=== PATIENT | male | born 1960 | race Caucasian/White ===

== ENCOUNTER 2018-05-29 09:09 | Outpatient (CLI) | payer BC, SELFPAY ==
[2018-05-29 11:34] LABS: Hemoglobin A1C 5.5 % (4.5-6.2)
[2018-05-29 11:43] LABS: Cholesterol 260 mg/dL (50-200); HDL Cholesterol 39 mg/dL (40-60); LDL CHOLESTEROL 203 mg/dL (<100); Triglyceride 104 mg/dL (30-150)
== END 2018-05-29 09:29 ==
PROVIDERS: PCP Emergency Medicine; Visit Provider Emergency Medicine
DX: E78.5 Hyperlipidemia, unspecified (principal); E11.9 Type 2 diabetes mellitus without complications
CPT/HCPCS: 36415; 80061; 83721; 83036

== ENCOUNTER 2018-07-21 08:02 | Outpatient (CLI) | payer BC, SELFPAY ==
[2018-07-21 11:38] LABS: Cholesterol 184 mg/dL (50-200); HDL Cholesterol 41 mg/dL (40-60); LDL CHOLESTEROL 129 mg/dL (<100); Triglyceride 66 mg/dL (30-150)
== END 2018-07-21 08:22 ==
PROVIDERS: PCP Emergency Medicine; Visit Provider Emergency Medicine
DX: E78.5 Hyperlipidemia, unspecified (principal)
CPT/HCPCS: 36415; 80061; 83721

== ENCOUNTER 2020-01-26 11:15 | Outpatient (REF) | payer OTHER, SELFPAY ==
[2020-01-26 13:12] LABS: Calculated LDL 147 mg/dL (<100); Cholesterol 220 mg/dL (<200); HDL Cholesterol 34 mg/dL (40-60); Triglyceride 196 mg/dL (<150)
[2020-01-26 13:13] LABS: Hemoglobin A1C 5.9 % (3.8-5.6)
[2020-01-27 09:19] LABS: PSA, Screening 0.9 ng/mL (0.0-4.5)
== END 2020-01-26 11:35 ==
LOC: LBN 11:15
PROVIDERS: PCP Emergency Medicine; Visit Provider Emergency Medicine
DX: I25.10 Atherosclerotic heart disease of native coronary artery without angina pectoris (principal); E66.9 Obesity, unspecified; Z12.5 Encounter for screening for malignant neoplasm of prostate
CPT/HCPCS: 80061; 84153; 83036

== ENCOUNTER 2020-09-19 03:18 | Outpatient (CLI) | payer OTHER, SELFPAY ==
[2020-09-20 13:31] LABS: COVID-19 RT-PCR UVMMC Result Positive (Negative)
== END 2020-09-19 03:19 | disposition home or self-care (01) ==
LOC: LBO 03:18
PROVIDERS: PCP Emergency Medicine; Visit Provider Emergency Medicine
DX: Z20.828 Contact with and (suspected) exposure to other viral communicable diseases (principal)
CPT/HCPCS: U0003

== ENCOUNTER 2021-03-20 12:59 | Outpatient (REF) | payer OTHER, SELFPAY ==
[2021-03-20 16:46] LABS: Anion Gap 9.2 mmol/L (3-11); BUN 24 mg/dL (7-18); CO2 28.8 mmol/L (21.0-32.0); CREATININE 1.2 mg/dL (0.70-1.30); Calcium 9.4 mg/dL (8.5-10.1); Calculated LDL 102 mg/dL (<100); Chloride 105 mmol/L (98-107); Cholesterol 167 mg/dL (<200); Glucose 202 mg/dL (74-106); HDL Cholesterol 35 mg/dL (40-60); Potassium 3.8 mmol/L (3.5-5.1); Sodium 143 mmol/L (136-145); Triglyceride 150 mg/dL (<150)
[2021-03-20 17:55] LABS: Hemoglobin A1C 6.8 % (<5.7)
== END 2021-03-20 13:00 | disposition home or self-care (01) ==
LOC: LBN 12:59
PROVIDERS: PCP Emergency Medicine; Visit Provider Emergency Medicine
DX: I10 Essential (primary) hypertension; I25.10 Atherosclerotic heart disease of native coronary artery without angina pectoris; E11.9 Type 2 diabetes mellitus without complications
CPT/HCPCS: 80048; 80061; 83036

== ENCOUNTER 2022-02-05 09:12 | Emergency (ER) | payer BC, SELFPAY ==
[2022-02-05] VITALS (23 sets, daily range): BP systolic 109–172; BP diastolic 62–97; PULSE 53–67; RESP 9–24; TEMP 37.4; O2SAT 90–97
--- NOTE | 2022-02-05 09:15 | DI.CT_ITS ---
Exam(s) CT RENAL COLIC WO EXAM: CT RENAL COLIC WO INDICATION: right flank pain. COMPARISON: CT RENAL COLIC WO CONTRAST from 04/05/2015 TECHNIQUE: CT examination was performed without contrast administration. FINDINGS: Images obtained through the lung bases are unremarkable. Visualized portions of the liver and splee n appear intact. Visualized portions of the pancreas are unremarkable. Gallbladder and bile ducts are CT normal. Abdominal aorta is of normal diameter. No significant abdominal wall hernia. No significant abdominal or pelvic adenopathy. Adrenals appear normal bilaterally. There are multiple renal masses identified bilaterally, these have appearance consistent with cysts.t here are multiple nonobstructing bilateral renal calculi. There is mild right hydronephrosis. There is 1-2 millimeter in diameter calcification seen in the urinary bladder on the right which may eithe r lie within the bladder lumen or in the distal portion of the intra mural segment of the distal righ t ureter. Urinary bladder is otherwise unremarkable in appearance. IMPRESSION: Multiple nonobstructing renal calculi are noted bilaterally. There is a probable right ureterovesical junction calculus measuring 1-2 millimeters in diameter, alt ernatively this could represent a recently passed stone in the urinary bladder. RADIATION DOSE DELIVERED: 1,201.79mGy.cm DLP 1,201.79mGy.cm Total DLP !Error CTDIvol DATA REPOSITORY: All CT scans at this facility are submitted to the National Radiology Data Registry (NRDR) Dose Index Registry (DIR) with the [employer] (A[employer]). RADIATION OPTIMIZATION: All CT scans at this facility use at least one of these dose optimization te chniques: automated exposure control; mA and/or kV adjustment per patient size (includes targeted exa ms where dose is matched to clinical indication); or iterative reconstruction.
--- NOTE | 2022-02-05 09:33 | W.ED.GENAD ---
Discharge Plan Disposition Patient Disposition: HOME Condition: Improving Discharge Details Clinical Impression: Kidney stone, Elevated hemoglobin Primary Care Provider: Abrahan Izquierdo ED Provider: Joshua Singh Home Meds and New Rx's Prescriptions: No Action rosuvastatin [Crestor] 10 mg tablet 20 mg PO DAILY Qty: 90 3RF sildenafil [Viagra] 100 mg tablet 100 mg PO DAILY Qty: 6 3RF aspirin 81 mg tablet,delayed release (DR/EC) 81 mg PO DAILY Qty: 90 3RF amlodipine 5 mg tablet 5 mg PO DAILY Qty: 90 3RF hydrochlorothiazide 25 mg tablet 25 mg PO DAILY Qty: 90 3RF metoprolol succinate 50 mg tablet extended release 24 hr 50 mg PO DAILY Qty: 90 3RF nitroglycerin 0.4 MG tablet, sublingual 0.4 mg Sublingual PRN Label Comments: new prescription Discharge Instructions Instructions: Kidney Stones (ED) Additional Instructions: Please follow-up with your primary care provider due to your abnormal hemoglobin and hematocrit for consideration of lab recheck and further investigation if needed. We have put in a referral for you [place] [facility] [place]. You have been given a limited supply of narcotics and please use only as directed and for severe pain otherwise use topical [id number] pain medication. If you develop any new or worsening symptoms return to the emergency department for reassessment. Referrals: Abrahan Izquierdo NP [Primary Care Provider] - 2 weeks Henry Swanson MD [ [facility] STAFF PHYSICIAN] - (Please contact their office for arrangement of follow-up appointment) Discharge Data Discharge Date/Time-TO BE ENTERED AT DEPARTURE: 02/05/22 11:56 Medical Decision Making Patient presenting to the emergency department for chief complaint of right flank pain. This started acutely and suddenly approximately 3 hours prior to arrival. Patient states significant history of kidney stones with even having recurrence of septic stone and having to be sent to tertiary care center. Patient states this is the worst pain he has ever experienced but is similar to all other episodes of kidney stones. Patient does state associated nausea vomiting denies all other symptoms. Physical exam shows significant right CVA tenderness along with right abdominal tenderness exam otherwise nondiagnostic. Patient is acutely in significant pain so we will treat patient's pain and nausea along with giving IV fluids pending results. Reviewed labs which show an elevated hemoglobin and hematocrit which patient has had in the past but no significant leukocytosis. CMP does show a slight elevation in BUN creatinine is appropriate glucose slightly elevated at 153. Urinalysis shows high specific gravity, protein, and moderate blood with greater than [address] imaging does show a small stone in the distal right ureter just about ready to enter the bladder or just inside the bladder. There is associated hydronephrosis and hydroureter. Reassessed patient and patient significantly doing better after treatment as well as pain. We will plan on discharging patient with follow-up to primary care provider for elevated hemoglobin and hematocrit and lab reassessment. After discussion of diagnosis and plan of care patient has no further needs, questions, or concerns and states clear understanding to return to the emergency department for any worsening symptoms. This documentation was generated using Leotusation system, please disregard any oddities of phrase or misspellings. Medical Records Medical records reviewed: Yes I reviewed the patient's medical records. Imaging Data Radiologic Study: Attestation: I personally reviewed and interpreted this imaging study as follows: Imaging: CT Scan Radiologist's impression: FINDINGS: Images obtained through the lung bases are unremarkable. Visualized portions of the liver and spleen appear intact. Visualized portions of the pancreas are unremarkable. Gallbladder and bile ducts are CT normal. Abdominal aorta is of normal diameter. No significant abdominal wall hernia. No significant abdominal or pelvic adenopathy. Adrenals appear normal bilaterally. There are multiple renal masses identified bilaterally, these have appearance consistent with cysts.there are multiple nonobstructing bilateral renal calculi. There is mild right hydronephrosis. There is 1-2 millimeter in diameter calcification seen in the urinary bladder on the right which may either lie within the bladder lumen or in the distal portion of the intra mural segment of the distal right ureter. Urinary bladder is otherwise unremarkable in appearance. IMPRESSION: Multiple nonobstructing renal calculi are noted bilaterally. There is a probable right ureterovesical junction calculus measuring 1-2 millimeters in diameter, alternatively this could represent a recently passed stone in the urinary bladder. HPI General Mode of arrival: ambulatory. Date/Time Provider Initiated Documentation: 02/05/22 09:29. Limitations to Documentation: no limitations. Information obtained by: patient and RN notes reviewed. History of Present Illness 61 year old M presents to the emergency department with the chief complaint of right flank pain , described as similar to prior episodes, with intensity rated at 10. Quality is described as sharp, and is localized to the back and right. Patient abdomen. Patient started experiencing this hour(s) (3) and it has been constant. No relieving factors improve symptom(s), No exacerbating factors reported . Patient notes nausea/vomiting; denies fever/chills and shortness of breath. Patient did receive the following treatments prior to arrival, none Related Data Home Medications Medication Instructions Recorded Confirmed nitroglycerin 0.4 mg sublingual 0.4 mg sublingual PRN 03/31/14 02/05/22 tablet amlodipine 5 mg tablet 5 mg PO DAILY #90 tabs 08/14/21 02/05/22 hydrochlorothiazide 25 mg tablet 25 mg PO DAILY #90 tabs 08/14/21 02/05/22 metoprolol succinate 50 mg 50 mg PO DAILY #90 tabs 08/14/21 02/05/22 tablet,extended release 24 hr aspirin 81 mg tablet,delayed 81 mg PO DAILY #90 tabs 09/18/21 02/05/22 release sildenafil 100 mg tablet (Viagra) 100 mg PO DAILY #6 tab-caps 09/18/21 02/05/22 rosuvastatin 10 mg tablet (Crestor) 20 mg PO DAILY #90 tabs 01/02/22 02/05/22 Previous Rx's Medication Instructions Recorded amlodipine 5 mg tablet 5 mg PO DAILY #90 tabs 08/14/21 hydrochlorothiazide 25 mg tablet 25 mg PO DAILY #90 tabs 08/14/21 metoprolol succinate 50 mg 50 mg PO DAILY #90 tabs 08/14/21 tablet,extended release 24 hr aspirin 81 mg tablet,delayed 81 mg PO DAILY #90 tabs 09/18/21 release sildenafil 100 mg tablet (Viagra) 100 mg PO DAILY #6 tab-caps 09/18/21 rosuvastatin 10 mg tablet (Crestor) 20 mg PO DAILY #90 tabs 01/02/22 Allergies Allergy/AdvReac Type Severity Reaction Status Date / Time atorvastatin calcium AdvReac Verified 01/02/22 08:31 [From Lipitor] General Stated Complaint: FlankPain ANA: 3 Review of Systems Constitutional Constitutional: Denies chills and Denies fever(s) Cardiovascular Cardiovascular: Denies chest pain, Denies syncope and Denies dyspnea Respiratory Respiratory: Denies cough and Denies dyspnea Gastrointestinal Gastrointestinal: Reports abdominal pain, Denies diarrhea, Reports nausea and Reports vomiting Genitourinary Genitourinary: Reports as per HPI and Reports flank pain Musculoskeletal Musculoskeletal: Reports back pain Integumentary/Breasts Skin/Breast: Denies rash Neurologic Neurologic: Denies syncope Endocrine Endocrine: Denies polyuria [facility] All Active Problems (Updated 02/05/22 @ 11:30 by Joshua Singh NP) Elevated hemoglobin (Acute) COVID-19 virus infection (Acute) Alcohol abuse (Acute) History of arthroscopy of knee (Acute) History of surgical procedure (Acute) Chronic obstructive lung disease (Acute) Contracture of joint of finger of left hand (Acute) 10/12/15; [facility]; LEFT LONG FINGER Coronary artery disease (Acute 03/31/14) stent lpl 2013 mild difuse disease Depressive disorder (Acute) Essential hypertension (Acute 05/11/13) History of alcoholism (Acute) History of tobacco use (Acute) Kidney stone (Acute) Obesity (Acute) Obstructive sleep apnea syndrome (Acute) Pleuritic chest pain (Acute 03/28/14) Hyperlipidemia (Chronic) Hypertension (Chronic) Surgical History Arthroplasty of knee 06/22/14 RIGHT KNEE WITH PARTIAL MEDIAL MENISCECTOMY Arthroscopy 05/20/14; [facility]; RIGHT Family History Mother , 70's Alcohol abuse Depression Heart disease Father , 80's Cancer Stroke Sister No problems noted. Brother Depression Social History Smoking/Tobacco Use Status: Current every day Tobacco Type: cigarettes Quit status: has quit before Second Hand Exposure: Yes Smoking risk assessment performed?: Yes Alcohol Intake: current Alcohol Intake frequency: a few times a month Alcohol type: wine Drug use: Rarely Substance use type: marijuana Caregiver/Support person: Yes Household members: spouse Do you need help understanding health information?: Never Pets and animals: Yes Pets and animals: cat(s) Sexually active: Yes Do you think of yourself as: straight/heterosexual Current gender identity: male What is your relationship status?: How often do you talk on the phone with friends or family?: twice per week Panel score (0-1 are the most socially isolated patients): 1 Frequency: 1-2 times per week Wendy/Oriental Orthodox: None Special wendy needs: No Seatbelt use: always Helmet use: Yes Helmet use: sometimes Drive intox or ride w/intox tilt tray driver: No Do you feel safe at home: Yes Do you feel safe in your relationship?: Yes Exam Const General: cooperative, acute distress moderate and severe and ill appearing acutely Nutritional Appearance: overweight Orientation: alert, awake and oriented x3 Resp Effort & Inspection: normal respiratory effort and able to speak in complete sentences Auscultation: clear to auscultation bilaterally Cardio Rate: regular rate Rhythm: regular rhythm Heart Sounds: S1 normal and S2 normal GI Inspection: normal to inspection, no abdominal wall ecchymosis and obesity Palpation: soft, not firm, no guarding, not rigid and tender in the RLQ and in the RUQ Auscultation: normal bowel sounds General: CVA tenderness on the right Back/Spine/Pelvis Back: CVA tenderness Thoracic/Lumbar Spine: thoracic and lumbar spine normal to inspection Neuro General: patient alert, patient awake and patient oriented x3 Extrem General: capillary refill normal Course Vital Signs Vital signs: Vital Signs Temperature 37.4 C 02/05/22 09:22 Pulse 60 02/05/22 09:22 Respiratory Rate 24 02/05/22 09:22 Blood Pressure 172/97 H 02/05/22 09:22 Pulse Oximetry 97 02/05/22 09:22 Temperature 37.4 C 02/05/22 09:22 Temperature Source Temporal Artery Scan 02/05/22 09:22 Pulse 60 02/05/22 09:22 Respiratory Rate 24 02/05/22 09:22 Respiratory Effort Non-Labored 02/05/22 09:26 Blood Pressure 172/97 H 02/05/22 09:22 Blood Pressure Position Supine 02/05/22 09:22 Pulse Oximetry 97 02/05/22 09:22 Oxygen Delivery Method Room Air 02/05/22 09:22 Oxygen Flow Rate 0 02/05/22 09:22 Pain Level 10 02/05/22 09:31
[2022-02-05] MEDS: HYDROmorphone 2 MG/ML SYR 1 MG IVP (09:38)
[2022-02-05] MEDS: Normal Saline 1,000 ML 1000 ML IV (09:38)
[2022-02-05] MEDS: Ketorolac 30 MG/ML VIAL IVP (09:38)
[2022-02-05] MEDS: Ondansetron 4 MG/2 ML VIAL IVP (09:39)
[2022-02-05 09:47] LABS: Abs Immature Grans 0.03 10^3/uL (0.0-0.06); Absolute Basophil Count 0.05 10^3/uL (0.0-0.2); Absolute Eosinophil Count 0.03 10^3/uL (0.0-0.7); Absolute Lymphocyte Count 1.34 10^3/uL (1.2-3.4); Absolute Monocyte Count 0.68 10^3/uL (0.1-0.8); Absolute Neutrophil Count 6.93 10^3/uL (1.2-6.7); Basophils % 0.6; Eosinophils % 0.3; HCT 56.9 % (40.0-50.0); Immature Grans % 0.3; Lymphocytes % 14.8; MCH 30.9 pg (27.0-33.0); MCHC 35.9 % (32.0-36.0); MCV 86 fL (80-95); MPV 12.2 fL (8.0-11.0); Monocytes % 7.5; Neutrophils % 76.5; Platelet Count 166 10^3/uL (130-400); RBC 6.61 10^6/uL (4.36-5.78); RDW 13.1 % (11.8-14.1); RDW-SD 40.1 fL; WBC 9.06 10^3/uL (4.4-10.8)
[2022-02-05 10:07] LABS: ALT 34 U/L (16-63); AST 24 U/L (15-37); Albumin 3.7 g/dL (3.4-5.0); Alkaline Phosphatase 87 U/L (46-116); BUN 25 mg/dL (7-18); Bilirubin, Total 0.8 mg/dL (0.2-1.0); CREATININE 1.2 mg/dL (0.70-1.30); Calcium 9.3 mg/dL (8.5-10.1); Chloride 101 mmol/L (98-107); Estimated GFR 67.95 (mL/min/1.73m2); Glucose 153 mg/dL (74-106); Potassium 3.9 mmol/L (3.5-5.1); Sodium 139 mmol/L (136-145); Total Protein 7.7 g/dL (6.4-8.2)
[2022-02-05 10:33] LABS: HGB 20.4 g/dL (13.5-17.5)
[2022-02-05 10:34] LABS: Diff Comment Diff Reviewed; Polychromasia Present
[2022-02-05 10:46] LABS: Bilirubin Negative (Negative); Blood Moderate (Negative); Clarity Clear (Clear); Glucose Negative (Negative); Ketones Negative (Negative); Leukocyte Esterase Negative (Negative); Nitrite Negative (Negative); Specific Gravity >= 1.030 (1.005-1.025); Urobilinogen 0.2 EU/dL (Up TO 0.2)
[2022-02-05 10:54] LABS: Bacteria Negative HPF (Negative); Casts 0-2 Hyaline LPF (Negative); Crystals Negative HPF (Negative); Epithelial Cells Few HPF (Negative); Mucus Negative (Negative); RBC >50 HPF (0-2); WBC Negative HPF (0-5)
[2022-02-05 10:55] LABS: C & S Indicated? No
--- NOTE | 2022-02-05 11:49 | NUR.NOTE ---
Addendum entered by Kerri Lopez 02/05/22 11:51: Referral faxed to PCP for elevated hemoglobinj, hematocrit; in 1 to 2 weeks. Original Note: Nursing Note: Referral faxed to [facility] Urology for recurrent kidney stones, time at their discretion.
== END 2022-02-05 11:56 | disposition home or self-care (01) ==
PROVIDERS: Emergency Provider Nurse Practitioner Family; PCP Nurse Practitioner Family
DX: N13.2 Hydronephrosis with renal and ureteral calculous obstruction (principal); D58.2 Other hemoglobinopathies; R79.89 Other specified abnormal findings of blood chemistry; R73.9 Hyperglycemia, unspecified; F17.210 Nicotine dependence, cigarettes, uncomplicated
CPT/HCPCS: 36415; 80053; 96361; 96374; 96375; 99284; 74176; 81003; 81015; 85025; J1170; J1885; J2405

== ENCOUNTER 2022-05-16 08:58 | Emergency (ER) | payer BC, SELFPAY ==
[2022-05-16] VITALS (13 sets, daily range): BP systolic 118–141; BP diastolic 71–96; PULSE 52–70; RESP 13–20; TEMP 36.6; O2SAT 94–97
--- NOTE | 2022-05-16 09:00 | RT.EKG_ITS ---
APPROVED REPORT Exam: Resting ECG Reason for Exam: heart attack? Patient Location: E HR:64 bpm ECG Measurements Heart Rate 64 AXIS KS 190 P 38 QRSd 129 QRS 34 QT 414 T 28 QTc 429 Conclusion Sinus rhythm...normal P axis, V-rate 60- 99 IVCD, consider RBBB...QRSd>120mS, terminal axis(90,270) Borderline ST elevation, lateral leads...ST >0.06mV, I aVL V5 V6
--- NOTE | 2022-05-16 09:15 | DI.RAD_ITS ---
Exam(s) XR PORTABLE CHEST AP EXAM: XR PORTABLE CHEST AP CLINICAL HISTORY: shortness of breath TECHNIQUE: 2D digital imaging was performed of the chest. One image was obtained. An AP view was ob tained. COMPARISON: CR CHEST 2 VIEWS PA,LAT from 03/28/2014 FINDINGS: MEDIASTINUM: Normal. HEART: Normal. PULMONARY VASCULATURE: Normal. LUNGS: Clear. PLEURAL SPACE: No pleural effusion or pneumothorax. BONE:Within normal limits for the patient's age. There again seen marked degenerative changes of the left glenohumeral joint. OTHER FINDINGS:Normal. IMPRESSION: No acute pulmonary findings. DATA REPOSITORY: RADIATION DOSE DELIVERED:
--- NOTE | 2022-05-16 09:23 | ED.GENADUL_ITS ---
Discharge Plan Disposition Patient Disposition: Admit to [facility] Condition: Serious Discharge Details Chief Complaint: Chest Pain Clinical Impression: Non-ST elevation ME (NSTEMI) Primary Care Provider: Abrahan Izquierdo ED Provider: Johnny Chacko [place] Meds and New Rx's Prescriptions: No Action rosuvastatin [Crestor] 10 mg tablet 20 mg PO DAILY Qty: 90 3RF sildenafil [Viagra] 100 mg tablet 100 mg PO DAILY Qty: 6 3RF aspirin 81 mg tablet,delayed release (DR/EC) 81 mg PO DAILY Qty: 90 3RF amlodipine 5 mg tablet 5 mg PO DAILY Qty: 90 3RF hydrochlorothiazide 25 mg tablet 25 mg PO DAILY Qty: 90 3RF metoprolol succinate 50 mg tablet extended release 24 hr 50 mg PO DAILY Qty: 90 3RF nitroglycerin 0.4 MG tablet, sublingual 0.4 mg Sublingual PRN Label Comments: new prescription Medical Decision Making 62 yo male with hx of cad s/p stent years ago per patient, htn, hld, who comes in with chief complaint of intermittent shortness of breath and feeling of indigestion for the last 2 days. He denies any fevers, chills, chest pressure, abdomen pain, n/v, diaphoresis. He states the symptoms occur sporadically and can't think of anything that makes it better or worse. HE states he was at work sitting when he started to feel short of breath and have a burning sensation in the chest and came here. He states on the drive here the symptoms resolved. HE denies radiation of pain. He arrives stable and appears well speaking in full sentences. He has clear lungs, no murmurs, no jvd, no abdominal tenderness, no leg swelling or calf tenderness. Unclear etiology for his symptoms, given his history will obtain troponin and also cxr to evaluate for possible pulmonary edema. He has no evidence of dvt on exam, no tachycardia, no hypoxia and no pleuritic chest pain so doubt PE and no tearing back pain to suggest dissection. patient stable, denies pain now, his troponin is positive at 401. Aspirin and heparin ordered, will consult cardiology at [facility] cardiology advised to hold on plavix at this time as he may require cabg given his cath in 2013 showed diffuse disease, and are hopeful they can take the patient tomorrow or Friday. Discussed with hospitalist, will plan on admission here until [facility] can take the patient Differential Diagnosis Differential Diagnosis: acs, gerd, chf Medical Records Medical records reviewed: Yes I reviewed the patient's medical records. Imaging Data Radiologic Study: Attestation: I personally reviewed and interpreted this imaging study as follows: Imaging: X-Ray Radiologist's impression: no acute findings Lab Data Lab results reviewed: Yes I reviewed the patient's lab results. ECG Data Attestation: I personally reviewed and interpreted this ECG (s) as follows: Prior ECG tracings: available for review Interpretation: sinus rhythm, rate of 74, rbbb, pr 190 Sign Out No HPI General Mode of arrival: ambulatory . Date/Time Provider Initiated Documentation: 05/16/22 09:07 . Limitations to Documentation: no limitations . Information obtained by: patient . History of Present Illness 62 year old M presents to the emergency department with the chief complaint of shortness of breath, described as moderate, Patient started experiencing this day(s) (2) and it has been intermittent. No relieving factors improve symptom(s), No exacerbating factors reported . Patient notes denies cough and fever/chills. Patient did receive the following treatments prior to arrival, none Related Data Home Medications Medication Instructions Recorded Confirmed nitroglycerin 0.4 mg sublingual 0.4 mg sublingual PRN 03/31/14 02/25/22 tablet amlodipine 5 mg tablet 5 mg PO DAILY #90 tabs 08/14/21 02/25/22 hydrochlorothiazide 25 mg tablet 25 mg PO DAILY #90 tabs 08/14/21 02/25/22 metoprolol succinate 50 mg 50 mg PO DAILY #90 tabs 08/14/21 02/25/22 tablet,extended release 24 hr aspirin 81 mg tablet,delayed 81 mg PO DAILY #90 tabs 09/18/21 02/25/22 release sildenafil 100 mg tablet (Viagra) 100 mg PO DAILY #6 tab-caps 09/18/21 02/25/22 rosuvastatin 10 mg tablet (Crestor) 20 mg PO DAILY #90 tabs 01/02/22 02/25/22 Previous Rx's Medication Instructions Recorded amlodipine 5 mg tablet 5 mg PO DAILY #90 tabs 08/14/21 hydrochlorothiazide 25 mg tablet 25 mg PO DAILY #90 tabs 08/14/21 metoprolol succinate 50 mg 50 mg PO DAILY #90 tabs 08/14/21 tablet,extended release 24 hr aspirin 81 mg tablet,delayed 81 mg PO DAILY #90 tabs 09/18/21 release sildenafil 100 mg tablet (Viagra) 100 mg PO DAILY #6 tab-caps 09/18/21 rosuvastatin 10 mg tablet (Crestor) 20 mg PO DAILY #90 tabs 01/02/22 Allergies Allergy/AdvReac Type Severity Reaction Status Date / Time atorvastatin calcium AdvReac Verified 02/25/22 07:55 [From Lipitor] General Stated Complaint: Chest Pain ANA: 2 Review of Systems All systems reviewed & are unremarkable except as noted in HPI and below Constitutional Constitutional: Denies chills, Denies fever(s) and Denies weakness Eyes Eyes: Denies loss of vision ENT Ears, Nose, Mouth, and Throat: Denies change in voice Respiratory Respiratory: Denies cough Gastrointestinal Gastrointestinal: Denies abdominal pain, Denies nausea and Denies vomiting Musculoskeletal Musculoskeletal: Denies joint swelling Neurologic Neurologic: Denies loss of vision and Denies weakness [facility] All Active Problems (Updated 05/16/22 @ 12:31 by Johnny Chacko MD) Non-ST elevation ME (NSTEMI) (Acute) Elevated hemoglobin (Acute) COVID-19 virus infection (Acute) Alcohol abuse (Acute) History of arthroscopy of knee (Acute) History of surgical procedure (Acute) Chronic obstructive lung disease (Acute) Contracture of joint of finger of left hand (Acute) 10/12/15; [facility]; LEFT LONG FINGER Coronary artery disease (Acute 03/31/14) stent lpl 2013 mild difuse disease Depressive disorder (Acute) Essential hypertension (Acute 05/11/13) History of alcoholism (Acute) History of tobacco use (Acute) Kidney stone (Acute) Obesity (Acute) Obstructive sleep apnea syndrome (Acute) Pleuritic chest pain (Acute 03/28/14) Hyperlipidemia (Chronic) Hypertension (Chronic) Surgical History Arthroplasty of knee 06/22/14 RIGHT KNEE WITH PARTIAL MEDIAL MENISCECTOMY Arthroscopy 05/20/14; [facility]; RIGHT Family History Mother , 70's Alcohol abuse Depression Heart disease Father , 80's Cancer Stroke Sister No problems noted. Brother Depression Social History Smoking/Tobacco Use Status: Current every day Tobacco Type: cigarettes Quit status: has quit before Second Hand Exposure: Yes Smoking risk assessment performed?: Yes Alcohol Intake: current Alcohol Intake frequency: a few times a month Alcohol type: wine Drug use: Rarely Substance use type: marijuana Caregiver/Support person: Yes Household members: spouse Do you need help understanding health information?: Never Pets and animals: Yes Pets and animals: cat(s) Sexually active: Yes Do you think of yourself as: straight/heterosexual Current gender identity: male What is your relationship status?: How often do you talk on the phone with friends or family?: twice per week Panel score (0-1 are the most socially isolated patients): 1 Frequency: 1-2 times per week Wendy/Pentecostalism: None Special wendy needs: No Seatbelt use: always Helmet use: Yes Helmet use: sometimes Drive intox or ride w/intox cdl team truck driver: No Do you feel safe at home: Yes Do you feel safe in your relationship?: Yes Exam Const General: no acute distress Orientation: alert HENMT Head: normal to inspection Ears: external ears normal General nose exam: external nose normal Mouth: moist mucous membranes Eyes General: appearance normal, both eyes and all related structures Neck Neck: normal visual inspection Resp Effort & Inspection: normal respiratory effort and able to speak in complete sentences Cardio Jugular venous pressure: no JVD Rate: regular rate Heart Sounds: no murmurs GI Palpation: soft and nontender Skin General skin exam: no rashes or lesions noted Neuro General: patient alert and patient oriented x3 Extrem General: normal to inspection Psych Mental Status: mental status grossly normal Course Vital Signs Vital signs: Vital Signs Temperature 36.6 C 05/16/22 09:02 Pulse 64 05/16/22 09:02 Respiratory Rate 16 05/16/22 09:02 Blood Pressure 141/96 H 05/16/22 09:02 Pulse Oximetry 96 05/16/22 09:02 Temperature 36.6 C 05/16/22 09:02 Temperature Source Skin 05/16/22 09:02 Pulse 64 05/16/22 09:02 Respiratory Rate 16 05/16/22 09:02 Respiratory Effort 05/16/22 09:15 Blood Pressure 141/96 H 05/16/22 09:02 Pulse Oximetry 96 05/16/22 09:02 Oxygen Delivery Method Room Air 05/16/22 09:02 Oxygen Flow Rate 0 05/16/22 09:02 Pain Level 0 05/16/22 09:02
[2022-05-16 09:35] LABS: Source Nasal/Nares
[2022-05-16 09:45] LABS: Abs Immature Grans 0.02 10^3/uL (0.0-0.06); Absolute Basophil Count 0.04 10^3/uL (0.0-0.2); Absolute Eosinophil Count 0.06 10^3/uL (0.0-0.7); Absolute Lymphocyte Count 1.73 10^3/uL (1.2-3.4); Absolute Monocyte Count 0.65 10^3/uL (0.1-0.8); Absolute Neutrophil Count 5.46 10^3/uL (1.2-6.7); Basophils % 0.5; Eosinophils % 0.8; Immature Grans % 0.3; Lymphocytes % 21.7; MCH 29.9 pg (27.0-33.0); MCHC 35.1 % (32.0-36.0); MCV 85 fL (80-95); MPV 12.1 fL (8.0-11.0); Monocytes % 8.2; Neutrophils % 68.5; Platelet Count 175 10^3/uL (130-400); RDW-SD 39.8 fL; WBC 7.96 10^3/uL (4.4-10.8)
[2022-05-16 09:49] LABS: HCT 57.3 % (40.0-50.0); HGB 20.1 g/dL (13.5-17.5)
[2022-05-16 10:07] LABS: COVID-19 PCR Negative (Negative)
[2022-05-16 10:09] LABS: RBC 6.73 10^6/uL (4.36-5.78)
[2022-05-16 10:10] LABS: ALT 35 U/L (16-63); AST 22 U/L (15-37); Albumin 3.6 g/dL (3.4-5.0); Alkaline Phosphatase 93 U/L (46-116); Anion Gap 8.7 mmol/L (3-11); BUN 22 mg/dL (7-18); Bilirubin, Total 0.7 mg/dL (0.2-1.0); CO2 29.3 mmol/L (21.0-32.0); Calcium 9.3 mg/dL (8.5-10.1); Chloride 100 mmol/L (98-107); Diff Comment Diff Reviewed; Estimated GFR 84.05 (mL/min/1.73m2); Glucose 136 mg/dL (74-106); Magnesium 1.6 mg/dL (1.8-2.4); NT-proBNP 185 pg/mL (<300); Sodium 138 mmol/L (136-145); Total Protein 7.5 g/dL (6.4-8.2)
[2022-05-16 10:11] LABS: RBC Morphology Normal
--- NOTE | 2022-05-16 10:15 | RT.EKG_ITS ---
APPROVED REPORT Exam: Resting ECG Reason for Exam: chest pain Patient Location: E HR:52 bpm ECG Measurements Heart Rate 52 AXIS W[place] [id number] P [id number] QRSd 132 QRS 43 QT 424 T 52 QTc 394 Conclusion Atrial fibrillation...V-rate 48- 54, irreg A-activity IVCD, consider RBBB...QRSd>120mS, terminal axis(90,270)
[2022-05-16 10:17] LABS: Troponin I 401 ng/L (<or=60)
[2022-05-16] MEDS: Aspirin 325 MG TAB PO (10:35)
[2022-05-16 10:43] LABS: INR 1.1 (0.9-1.1); PTT Activated 26.3 sec (21.0-27.5); Prothrombin Time 10.6 sec (9.3-11.0)
[2022-05-16 12:39] LABS: Troponin I 427 ng/L (<or=60)
[2022-05-16 15:34] LABS: Troponin I 458 ng/L (<or=60)
--- NOTE | 2022-05-16 16:11 | HPE_ITS ---
Date of service: 05/16/22 Time of Service: 16:12 Assessment and Plan Assessment and plan (1) Non-ST elevation VT (NSTEMI): Status: Acute Assessment and plan: patient was treated w/ ASA and heparin drip was ordered, however, patient left the emergency department against medical advice before he was admitted to the floor. I did call [facility] to advise them of his leaving our facility. They indicated to me that they denied our E.D. request for transfer d/t lack of bed capacity. History of Present Illness History of Present Illness Chief Complaint: dyspnea, chest discomfort Narrative: 62 yr old male w/ known CAD prior coronary stents several years ago, who presented w/ sx of exertional dyspnea and now w/ new onset of chest burning and worsening dyspnea at rest. His chest burning resolved on the drive to the ED. Workup in the ED revealed an NSTEMI w/ troponin I levels of 401, 427, and 458 and EKG demonstrating sinus bradycardia @ 52 bpm and non-specific IVCD but no a cute ST elevation or depression. Dr. Chacko, ED attending, spoke w/ [facility] cardiology who recommended ASA but not Plavix as he has known multivessel disease and likely will need CABG. Dr. Chacko gave the patient ASA 324 mg and ordered heparin drip. It was my understanding that [facility] would take him once a bed became available as they felt he needed a cardiac cath. Our hospital was also near capacity and while waiting to move him upstairs into a medical bed, he left the ER against medical advice. Review of Systems Unobtainable due to (not obtained as patient left [facility] before I was able to see him) [facility] All Active Problems (Updated 05/16/22 @ 12:31 by Johnny Chacko MD) Non-ST elevation VT (NSTEMI) (Acute) Elevated hemoglobin (Acute) COVID-19 virus infection (Acute) Alcohol abuse (Acute) History of arthroscopy of knee (Acute) History of surgical procedure (Acute) Chronic obstructive lung disease (Acute) Contracture of joint of finger of left hand (Acute) 10/12/15; [facility]; LEFT LONG FINGER Coronary artery disease (Acute 03/31/14) stent lpl 2013 mild difuse disease Depressive disorder (Acute) Essential hypertension (Acute 05/11/13) History of alcoholism (Acute) History of tobacco use (Acute) Kidney stone (Acute) Obesity (Acute) Obstructive sleep apnea syndrome (Acute) Pleuritic chest pain (Acute 03/28/14) Hyperlipidemia (Chronic) Hypertension (Chronic) Surgical History Arthroplasty of knee 06/22/14 RIGHT KNEE WITH PARTIAL MEDIAL MENISCECTOMY Arthroscopy 05/20/14; [facility]; RIGHT Family History Mother , 70's Alcohol abuse Depression Heart disease Father , 80's Cancer Stroke Sister No problems noted. Brother Depression Social History Smoking/Tobacco Use Status: Current every day Tobacco Type: cigarettes Quit status: has quit before Second Hand Exposure: Yes Smoking risk assessment performed?: Yes Alcohol Intake: current Alcohol Intake frequency: a few times a month Alcohol type: wine Drug use: Rarely Substance use type: marijuana Caregiver/Support person: Yes Household members: spouse Do you need help understanding health information?: Never Pets and animals: Yes Pets and animals: cat(s) Sexually active: Yes Do you think of yourself as: straight/heterosexual Current gender identity: male What is your relationship status?: How often do you talk on the phone with friends or family?: twice per week Panel score (0-1 are the most socially isolated patients): 1 Frequency: 1-2 times per week Wendy/Latter-Day: None Special wendy needs: No Seatbelt use: always Helmet use: Yes Helmet use: sometimes Drive 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 Do you feel safe at home: Yes Do you feel safe in your relationship?: Yes Meds Allergies and Home Medications Allergies Allergy/AdvReac Type Severity Reaction Status Date / Time atorvastatin calcium AdvReac Verified 02/25/22 07:55 [From Lipitor] Home Medications Medication Instructions Recorded Confirmed Type nitroglycerin 0.4 mg sublingual 0.4 mg sublingual PRN 03/31/14 02/25/22 History tablet amlodipine 5 mg tablet 5 mg PO DAILY #90 tabs 08/14/21 02/25/22 Rx hydrochlorothiazide 25 mg tablet 25 mg PO DAILY #90 tabs 08/14/21 02/25/22 Rx metoprolol succinate 50 mg 50 mg PO DAILY #90 tabs 08/14/21 02/25/22 Rx tablet,extended release 24 hr aspirin 81 mg tablet,delayed 81 mg PO DAILY #90 tabs 09/18/21 02/25/22 Rx release sildenafil 100 mg tablet (Viagra) 100 mg PO DAILY #6 tab-caps 09/18/21 02/25/22 Rx rosuvastatin 10 mg tablet (Crestor) 20 mg PO DAILY #90 tabs 01/02/22 02/25/22 Rx Exam Narrative Exam Narrative: no exam as patient left the E.D. against medical advice Results Labs Result diagrams: 05/16/22 09:00 05/16/22 09:00 Labs: Laboratory Results - last 24 hr 05/16/22 05/16/22 05/16/22 09:00 09:00 09:00 WBC 7.96 RBC 6.73 H Hgb 20.1 H* Hct 57.3 H* MCV 85 MCH 29.9 MCHC 35.1 RDW 13.0 Plt Count 175 MPV 12.1 H Immature Gran % 0.3 Neutrophils % 68.5 Lymphocytes % 21.7 Monocytes % 8.2 Eosinophils % 0.8 Basophils % 0.5 Nucleated RBC % 0.0 Absolute Neutrophils 5.46 Absolute Lymphocytes 1.73 Absolute Monocytes 0.65 Absolute Eosinophils 0.06 Absolute Basophils 0.04 RBC Morphology Normal PT 10.6 INR 1.1 APTT 26.3 Sodium 138 Potassium 4.0 Chloride 100 Carbon Dioxide 29.3 Anion Gap 8.7 BUN 22 H Creatinine 1.0 Est GFR (CKD-EPI 2020) 84.05 Glucose 136 H Calcium 9.3 Magnesium 1.6 L Total Bilirubin 0.7 AST 22 ALT 35 Alkaline Phosphatase 93 Troponin I 401 H* NT-Pro-B Natriuret Pep 185 Total Protein 7.5 Albumin 3.6 COVID-19 Source SARS-CoV-2 (PCR) 05/16/22 05/16/22 05/16/22 09:31 12:05 15:08 WBC RBC Hgb Hct MCV MCH MCHC RDW Plt Count MPV Immature Gran % Neutrophils % Lymphocytes % Monocytes % Eosinophils % Basophils % Nucleated RBC % Absolute Neutrophils Absolute Lymphocytes Absolute Monocytes Absolute Eosinophils Absolute Basophils RBC Morphology PT INR APTT Sodium Potassium Chloride Carbon Dioxide Anion Gap BUN Creatinine Est GFR (CKD-EPI 2020) Glucose Calcium Magnesium Total Bilirubin AST ALT Alkaline Phosphatase Troponin I 427 H* 458 H* NT-Pro-B Natriuret Pep Total Protein Albumin COVID-19 Source Nasal/Nares SARS-CoV-2 (PCR) Negative Last Vital Signs Temp 36.6 C 05/16/22 09:02 Pulse 52 L 05/16/22 10:46 Resp 14 05/16/22 10:46 BP 133/71 05/16/22 10:46 Pulse Ox 97 05/16/22 10:46
--- NOTE | 2022-05-16 17:22 | DSE_ITS ---
Date of service: 05/16/22 Time of Service: 17:27 DS: Diagnosis Discharge Diagnosis (1) Non-ST elevation IA (NSTEMI): Status: Acute Asessment and Plan: patient left the E.D. against medical advice before being admitted to the medical floor. patient was treated w/ ASA 324 mg while in the E.D. He reportedly was pain free at the time he left. Patient was advised by Dr. Chacko of his risks if he left the hospital w/out appropriate treatment. Discharge Plan Disposition Patient Disposition: Eloped Condition: Serious Discharge Details Clinical Impression: Non-ST elevation IA (NSTEMI) Primary Care Provider: Abrahan Izquierdo ED Provider: Johnny Chacko Hospital Course Hospital Course: see ED notes. Home Meds and New Rx's Prescriptions: No Action rosuvastatin [Crestor] 10 mg tablet 20 mg PO DAILY Qty: 90 3RF sildenafil [Viagra] 100 mg tablet 100 mg PO DAILY Qty: 6 3RF aspirin 81 mg tablet,delayed release (DR/EC) 81 mg PO DAILY Qty: 90 3RF amlodipine 5 mg tablet 5 mg PO DAILY Qty: 90 3RF hydrochlorothiazide 25 mg tablet 25 mg PO DAILY Qty: 90 3RF metoprolol succinate 50 mg tablet extended release 24 hr 50 mg PO DAILY Qty: 90 3RF nitroglycerin 0.4 MG tablet, sublingual 0.4 mg Sublingual PRN Label Comments: new prescription DS: Summary Time Spent with Patient providing and/or coordinating discharge services: Less than 30 minutes Specific discharge activities: none Status at Discharge Functional status at discharge: independent ambulation Overall status at discharge: other (unknown at this time as he left [facility] Mental Status: other Speech and Movement: other Mood: other Affect: other Exam Psych Mental Status: other Speech and Movement: other Mood: other Affect: other DS: Data Vitals/I&O Vitals and I&O: Vital Signs Temperature 36.6 C 05/16/22 09:02 Temperature Source Skin 05/16/22 09:02 Pulse 52 L 05/16/22 10:46 Pulse 58 L 05/16/22 10:46 Respiratory Rate 14 05/16/22 10:46 Respiratory Effort 05/16/22 10:06 Blood Pressure 133/71 05/16/22 10:46 Blood Pressure Mean 85 05/16/22 10:46 Pulse Oximetry 97 05/16/22 10:46 Oxygen Delivery Method Room Air 05/16/22 09:02 Oxygen Flow Rate 0 05/16/22 09:02 Pain Level 0 05/16/22 09:02 Intake & Output 05/15/22 05/16/22 05/16/22 23:59 11:59 23:59 Intake Total Balance Weight 121.563 kg Intake: IV Data Completed and Pending Labs on day of discharge: Labs from last 24 hours 05/16/22 05/16/22 05/16/22 19:10 15:08 12:05 WBC RBC Hgb Hct MCV MCH MCHC RDW Plt Count MPV Immature Gran % Neutrophils % Lymphocytes % Monocytes % Eosinophils % Basophils % Nucleated RBC % Absolute Neutrophils Absolute Lymphocytes Absolute Monocytes Absolute Eosinophils Absolute Basophils RBC Morphology PT INR APTT Sodium Potassium Chloride Carbon Dioxide Anion Gap BUN Creatinine Est GFR (CKD-EPI 2020) Glucose Calcium Magnesium Total Bilirubin AST ALT Alkaline Phosphatase Troponin I Pending 458 H* 427 H* NT-Pro-B Natriuret Pep Total Protein Albumin COVID-19 Source SARS-CoV-2 (PCR) 05/16/22 05/16/22 05/16/22 09:31 09:00 09:00 WBC 7.96 RBC 6.73 H Hgb 20.1 H* Hct 57.3 H* MCV 85 MCH 29.9 MCHC 35.1 RDW 13.0 Plt Count 175 MPV 12.1 H Immature Gran % 0.3 Neutrophils % 68.5 Lymphocytes % 21.7 Monocytes % 8.2 Eosinophils % 0.8 Basophils % 0.5 Nucleated RBC % 0.0 Absolute Neutrophils 5.46 Absolute Lymphocytes 1.73 Absolute Monocytes 0.65 Absolute Eosinophils 0.06 Absolute Basophils 0.04 RBC Morphology Normal PT 10.6 INR 1.1 APTT 26.3 Sodium Potassium Chloride Carbon Dioxide Anion Gap BUN Creatinine Est GFR (CKD-EPI 2020) Glucose Calcium Magnesium Total Bilirubin AST ALT Alkaline Phosphatase Troponin I NT-Pro-B Natriuret Pep Total Protein Albumin COVID-19 Source Nasal/Nares SARS-CoV-2 (PCR) Negative 05/16/22 09:00 WBC RBC Hgb Hct MCV MCH MCHC RDW Plt Count MPV Immature Gran % Neutrophils % Lymphocytes % Monocytes % Eosinophils % Basophils % Nucleated RBC % Absolute Neutrophils Absolute Lymphocytes Absolute Monocytes Absolute Eosinophils Absolute Basophils RBC Morphology PT INR APTT Sodium 138 Potassium 4.0 Chloride 100 Carbon Dioxide 29.3 Anion Gap 8.7 BUN 22 H Creatinine 1.0 Est GFR (CKD-EPI 2020) 84.05 Glucose 136 H Calcium 9.3 Magnesium 1.6 L Total Bilirubin 0.7 AST 22 ALT 35 Alkaline Phosphatase 93 Troponin I 401 H* NT-Pro-B Natriuret Pep 185 Total Protein 7.5 Albumin 3.6 COVID-19 Source SARS-CoV-2 (PCR) [facility] All Active Problems (Updated 05/16/22 @ 12:31 by Johnny Chacko MD) Non-ST elevation IA (NSTEMI) (Acute) Elevated hemoglobin (Acute) COVID-19 virus infection (Acute) Alcohol abuse (Acute) History of arthroscopy of knee (Acute) History of surgical procedure (Acute) Chronic obstructive lung disease (Acute) Contracture of joint of finger of left hand (Acute) 10/12/15; [facility]; LEFT LONG FINGER Coronary artery disease (Acute 03/31/14) stent lpl 2013 mild difuse disease Depressive disorder (Acute) Essential hypertension (Acute 05/11/13) History of alcoholism (Acute) History of tobacco use (Acute) Kidney stone (Acute) Obesity (Acute) Obstructive sleep apnea syndrome (Acute) Pleuritic chest pain (Acute 03/28/14) Hyperlipidemia (Chronic) Hypertension (Chronic) Surgical History Arthroplasty of knee 06/22/14 RIGHT KNEE WITH PARTIAL MEDIAL MENISCECTOMY Arthroscopy 05/20/14; [facility]; RIGHT Family History Mother , 70's Alcohol abuse Depression Heart disease Father , 80's Cancer Stroke Sister No problems noted. Brother Depression Social History Smoking/Tobacco Use Status: Current every day Tobacco Type: cigarettes Quit status: has quit before Second Hand Exposure: Yes Smoking risk assessment performed?: Yes Alcohol Intake: current Alcohol Intake frequency: a few times a month Alcohol type: wine Drug use: Rarely Substance use type: marijuana Caregiver/Support person: Yes Household members: spouse Do you need help understanding health information?: Never Pets and animals: Yes Pets and animals: cat(s) Sexually active: Yes Do you think of yourself as: straight/heterosexual Current gender identity: male What is your relationship status?: How often do you talk on the phone with friends or family?: twice per week Panel score (0-1 are the most socially isolated patients): 1 Frequency: 1-2 times per week Wendy/Temple: None Special wendy needs: No Seatbelt use: always Helmet use: Yes Helmet use: sometimes 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
== END 2022-05-16 16:41 | disposition left against medical advice (07) ==
PROVIDERS: Internal Medicine; Emergency Provider Emergency Medicine; PCP Nurse Practitioner Family
DX: I21.4 Non-ST elevation (NSTEMI) myocardial infarction (principal); E78.5 Hyperlipidemia, unspecified; I10 Essential (primary) hypertension; Z86.16 Personal history of COVID-19; Z20.822 Contact with and (suspected) exposure to COVID-19
CPT/HCPCS: 36415; 80053; 87635; 93005; 96365; 99283; 99285; 71045; 83735; 83880; 84484; 85025; 85610; 85730; 93010

== ENCOUNTER 2022-07-01 09:10 | Outpatient (RCR) | payer BC, SELFPAY | END 2022-07-09 23:59 | disposition home or self-care (01) | LOC: CR 09:10 | PROVIDERS: PCP Nurse Practitioner Family; Referring Provider Thoracic Surgery (Cardiothoracic Vascular Surgery); Visit Provider Internal Medicine Cardiovascular Disease | DX: I25.2 Old myocardial infarction (principal); Z95.1 Presence of aortocoronary bypass graft; Z51.89 Encounter for other specified aftercare | CPT/HCPCS: S9472 ==

== ENCOUNTER 2023-01-01 03:40 | Outpatient (CLI) | payer BC, SELFPAY ==
[2023-01-01 10:51] LABS: HCT 56.4 % (40.0-50.0); HGB 18.6 g/dL (13.5-17.5); MCH 28.6 pg (27.0-33.0); MCV 87 fL (80-95); Platelet Count 165 10^3/uL (130-400); RDW 14.5 % (11.8-14.1); RDW-SD 45.7 fL; WBC 7.33 10^3/uL (4.4-10.8)
[2023-01-01 11:12] LABS: ALT 33 U/L (16-63); AST 20 U/L (15-37); Albumin 3.5 g/dL (3.4-5.0); Alkaline Phosphatase 121 U/L (46-116); Anion Gap 7.3 mmol/L (3-11); BUN 23 mg/dL (7-18); Bilirubin, Total 0.7 mg/dL (0.2-1.0); CO2 27.7 mmol/L (21.0-32.0); CREATININE 1.2 mg/dL (0.70-1.30); Calculated LDL 92 mg/dL (<100); Chloride 107 mmol/L (98-107); Cholesterol 154 mg/dL (<200); Estimated GFR 67.53 (mL/min/1.73m2); Glucose 155 mg/dL (74-106); HDL Cholesterol 40 mg/dL (40-60); Potassium 4.4 mmol/L (3.5-5.1); Sodium 142 mmol/L (136-145); TSH (W/Ref FT4) 3.34 uIU/mL (0.36-3.74); Total Protein 6.9 g/dL (6.4-8.2); Triglyceride 111 mg/dL (<150)
[2023-01-01 11:26] LABS: Hemoglobin A1C 6.8 % (<5.7)
[2023-01-01 18:51] LABS: PSA, Screening 0.8 ng/mL (<=4.5)
== END 2023-01-01 03:41 | disposition home or self-care (01) ==
LOC: LOS 03:40
PROVIDERS: PCP Nurse Practitioner Family; Visit Provider Nurse Practitioner Family
DX: E66.9 Obesity, unspecified (principal); D58.2 Other hemoglobinopathies; E78.5 Hyperlipidemia, unspecified; N40.0 Benign prostatic hyperplasia without lower urinary tract symptoms; I10 Essential (primary) hypertension; Z13.1 Encounter for screening for diabetes mellitus
CPT/HCPCS: 36415; 80053; 80061; 84153; 85027; 83036; 84443

== ENCOUNTER 2023-03-06 18:11 | Emergency (ER) | payer MEDICARE, SELFPAY ==
[2023-03-06 18:14] VITALS: BP 178/97; PULSE 64; RESP 24; TEMP 37.9; O2SAT 95
--- NOTE | 2023-03-06 19:00 | DI.CT_ITS ---
Exam(s) CT ABDOMEN PELVIS WO EXAM: CT ABDOMEN PELVIS WO CLINICAL HISTORY: right flank pain, hx of stones. TECHNIQUE: Imaging Protocol: Axial computed tomography images with coronal and sagittal reformatted images were created and reviewed. COMPARISON: CT RENAL COLIC WO CONTRAST from 08/12/2010 CT HEAD WITHOUT CONTRAST from 04/05/2011 CT RENAL COLIC WO CONTRAST from 04/01/2014 CT RENAL COLIC WO CONTRAST from 04/05/[address] RENAL COLIC WO from 02/05/2022 FINDINGS: ABDOMEN: Lung Bases: Coronary artery calcifications are present. There are 3 noncalcified pulmonary nodules p resent in the lower lobes. There is a 4 mm nodule in the periphery of the left lower lobe. There is a 6 mm nodule in the posterior aspect of the right lower lobe. There is a 6 mm nodule in the right middle lobe. There is mild atelectasis or scarring in the lung bases. Liver: Normal density. No measurable mass. Gallbladder and biliary tract: No radiodense calculus or biliary ductal dilation. Pancreas: Normal density, no abnormal calcifications or inflammatory process. Spleen: Normal. Kidneys: Normal size, contour and axis.There is a 6 mm stone near the junction of the middle and dist al thirds of the right ureter causing moderate hydronephrosis. There is bilateral nephrolithiasis. Bilateral hypodense well-circumscribed renal cortical lesions are present likely reflecting cysts. N o masses seen. Adrenal glands: No mass is seen. Lymph nodes: Within normal limits. Abdominal Aorta: Abdominal portion non-dilated. Atherosclerosis. PELVIS: Bladder:There is diffuse thickening of the wall wall of the urinary bladder. The urinary bladder is incompletely distended. Hounsfield units of the fluid in the bladder suggest complex fluid such as h emorrhage or sludge. Bowel: There is diverticulosis seen in the colon, but no evidence of acute diverticulitis. No eviden ce of bowel obstruction or bowel wall thickening. Appendix is unremarkable. Peritoneal cavity: No ascites, collection or mesenteric inflammatory response. No free air. Reproductive organs: Unremarkable as visualized. Bones: Within normal limits for the patient's age. There is L5 spondylolysis and grade 1 spondylolis thesis of L5 on S1. Soft Tissues: There are small bilateral fat containing inguinal hernias. IMPRESSION: 1. Stone in the junction of the middle and distal thirds of the right ureter cause moderate right hyd ronephrosis. 2. Bilateral nephrolithiasis. 3. Fluid in the urinary bladder suggest complex fluid which may represent hemorrhage or sludge. RADIATION DOSE DELIVERED: 1,489.22mGy.cm Total DLP DATA REPOSITORY: All CT scans at this facility are submitted to the National Radiology Data Registry (NRDR) Dose Index Registry (DIR) with the [employer] (ACR). RADIATION OPTIMIZATION: All CT scans at this facility use at least one of these dose optimization te chniques: automated exposure control; mA and/or kV adjustment per patient size (includes targeted exa ms where dose is matched to clinical indication); or iterative reconstruction.
[2023-03-06 19:21] LABS: Lactate 1.2 mmol/L (0.6-1.4)
[2023-03-06 19:24] LABS: Abs Immature Grans 0.03 10^3/uL (0.0-0.06); Absolute Basophil Count 0.05 10^3/uL (0.0-0.2); Absolute Eosinophil Count 0.07 10^3/uL (0.0-0.7); Absolute Lymphocyte Count 1.03 10^3/uL (1.2-3.4); Absolute Monocyte Count 0.74 10^3/uL (0.1-0.8); Basophils % 0.4; Eosinophils % 0.6; HCT 54.5 % (40.0-50.0); HGB 18.9 g/dL (13.5-17.5); Immature Grans % 0.3; MCH 29.9 pg (27.0-33.0); MCHC 34.7 % (32.0-36.0); MCV 86 fL (80-95); MPV 11.1 fL (8.0-11.0); Monocytes % 6.5; Neutrophils % 83.2; Platelet Count 162 10^3/uL (130-400); RBC 6.33 10^6/uL (4.36-5.78); RDW 13.2 % (11.8-14.1); RDW-SD 41.6 fL; WBC 11.42 10^3/uL (4.4-10.8)
[2023-03-06] MEDS: Lactated Ringers 1,000 ML 1000 ML IV (19:25)
[2023-03-06] MEDS: MORPHine 10 MG/ML VIAL 6 MG IVP (19:25)
[2023-03-06 19:36] LABS: Bilirubin Negative (Negative); Blood Moderate (Negative); Clarity Clear (Clear); Glucose Negative (Negative); Ketones Negative (Negative); Leukocyte Esterase Negative (Negative); Nitrite Negative (Negative); Specific Gravity >= 1.030 (1.005-1.025); Urobilinogen 0.2 mg/dL (Up to 0.2); pH 5.5 (5-8)
[2023-03-06 19:37] LABS: Lipase 56 U/L (16-77)
[2023-03-06 19:43] LABS: ALT 23 U/L (16-63); AST 11 U/L (15-37); Albumin 3.5 g/dL (3.4-5.0); Alkaline Phosphatase 103 U/L (46-116); Anion Gap 10.2 mmol/L (3-11); BUN 39 mg/dL (7-18); Bilirubin, Total 0.5 mg/dL (0.2-1.0); CO2 25.8 mmol/L (21.0-32.0); CREATININE 1.9 mg/dL (0.70-1.30); Calcium 9.9 mg/dL (8.5-10.1); Chloride 104 mmol/L (98-107); Estimated GFR 38.66 (mL/min/1.73m2); Glucose 158 mg/dL (74-106); Potassium 4.4 mmol/L (3.5-5.1); Sodium 140 mmol/L (136-145); Total Protein 7.3 g/dL (6.4-8.2)
[2023-03-06 19:52] LABS: Bacteria Negative HPF (Negative); C & S Indicated? No; Casts 0-2 Hyaline LPF (Negative); Crystals Few Uric Acid HPF (Negative); Epithelial Cells Rare HPF (Negative); Mucus Trace (Negative); Other Cells Negative (Negative); WBC 0-2 HPF (0-5)
[2023-03-06] MEDS: HYDROmorphone 2 MG/ML SYR 1 MG IVP (20:33)
--- NOTE | 2023-03-06 21:39 | DI.VRAD_ITS ---
PROCEDURE INFORMATION: Exam: CT Abdomen And Pelvis Without Contrast Exam date and time: 03/06/2023 8:24 PM Age: 63 years old Clinical indication: Other: Right flank pain, HX of stones TECHNIQUE: Imaging protocol: Computed tomography of the abdomen and pelvis without contrast. COMPARISON: CT RENAL COLIC WO 02/05/2022 9:57 AM FINDINGS: Lungs: Mild peripheral scarring or atelectasis. Mild endobronchial mucus noted in the right lower lobe. Coronary arteries: Coronary artery calcifications are partially visualized. Liver: Unremarkable noncontrast liver imaging. Gallbladder and bile ducts: Normal. No calcified stones. No ductal dilation. Pancreas: Normal. No ductal dilation. Spleen: Normal. No splenomegaly. Adrenal glands: Normal. No mass. Kidneys and ureters: Moderate right hydronephrosis noted. The proximal right ureter is dilated with moderate adjacent fat stranding. A 4 mm stone is present in the mid-distal right ureter; see axial image 117 series 2. Multiple nonobstructing stones are present in both kidneys. The left kidney is negative for hydronephrosis. Multiple cysts are present in both kidneys. A 6.5 cm cyst at the right inferior pole shows Hounsfield units near 0. Stomach and bowel: Unremarkable stomach. Nondilated small bowel. Tortuous colon with mild gas and stool. Diverticula are noted in the descending colon. Rectum is unremarkable. Appendix: Normal appendix. Intraperitoneal space: Unremarkable. No free air. No significant fluid collection. Vasculature: Moderate vascular calcifications. Negative for abdominal aortic aneurysm. Lymph nodes: Unremarkable. No enlarged lymph nodes. Urinary bladder: Collapsed. Bladder contents show Hounsfield units 33, suggesting complex fluid, such as hemorrhage or sludge. Reproductive: Unremarkable as visualized. Bones/joints: Multilevel degenerative disc disease and facet arthropathy noted, moderate-severe. Pars defects are present at L5. Anterolisthesis of L5 on S1 measures 8 mm. Bulky enthesophytes and anterior ligamentous ossification are noted in the lower thoracic spine, with a separate complex in the lumbar spine. Soft tissues: Unremarkable. IMPRESSION: 1. Right mid-distal ureteral stone, 4 mm. 2. Moderate right hydronephrosis. 3. Additional nonobstructing stones in both kidneys. 4. Hemorrhage and/or sludge in the urinary bladder. 5. Additional findings as described. Dictated and Authenticated by: Johnny Swanson MD. Ordering:JYOTHI Palacios MD
--- NOTE | 2023-03-06 22:16 | NUR.NOTE ---
Referral faxed to [facility] for f/u of kidney stone per Dr Swanson. Case discussed with Dr Swanson 03/06/23.Nursing Note:
[2023-03-06] MEDS: Tamsulosin 0.4 MG CAPCR PO (22:36)
[2023-03-06] MEDS: Ondansetron O.D.T. 4 MG TABEF, 3 TABS/BTL PO (22:45)
--- NOTE | 2023-03-06 22:46 | W.ED.GENAD ---
Discharge Plan Disposition Patient Disposition: Home Condition: Stable Discharge Details Clinical Impression: Ureterolithiasis, Hydronephrosis Primary Care Provider: Abrahan Izquierdo ED Provider: Suzanne Lua Home Meds and New Rx's Prescriptions: New ondansetron 4 mg tablet,disintegrating 4 mg PO DAILY 5 Days Qty: 12 0RF tamsulosin [Flomax] 0.4 mg capsule 0.4 mg PO DAILY Qty: 6 0RF morphine 15 mg tablet 15 mg PO Q6H PRNQty: 10 0RF Continued nicotine 21 mg/24 hr patch 24 hour 1 patch transdermal DAILY Qty: 28 3RF nicotine (polacrilex) 4 mg lozenge 4 mg buccal Q4H PRN (Reason: nicotine cravings) Qty: 81 0RF sildenafil [Viagra] 100 mg tablet 100 mg PO DAILY Qty: 6 3RF aspirin 81 mg tablet,delayed release (DR/EC) 81 mg PO DAILY Qty: 90 3RF sertraline 50 mg tablet 50 mg PO DAILY Qty: 90 3RF metformin 500 mg tablet 500 mg PO BID Qty: 180 0RF Rx Instructions: Week 1: 1/2 tab daily, Week 2: 1/2 tab twice daily, Week 3: 1 tab in AM and 1/2 tab in PM, Week 4: 1 tab twice daily thereafter nitroglycerin 0.4 mg tablet, sublingual 0.4 mg Sublingual PRN Qty: 10 3RF clopidogrel 75 mg tablet 75 mg PO DAILY rosuvastatin 40 mg tablet 40 mg PO DAILY metoprolol succinate 50 mg tablet extended release 24 hr See Rx Instructions PO DAILY Qty: 0 0RF Rx Instructions: 50 mg QAM, 25 mg (0.5 tab) QPM orally daily; Discharge Instructions Additional Instructions: please take zofran as needed for nausea and vomiting take morphine 15 mg every 6 hours as needed for pain take flomax daily strain your urine regular fluids call urology tomorrow, you have a referral placed and I have spoken with Dr Swanson Referrals: Abrahan Izquierdo, [employer]GER [Primary Care Provider] - Henry Swanson MD [ [facility] STAFF PHYSICIAN] - Medical Decision Making Patient presenting with right flank pain, pain consistent or similar to prior presentations for ureterolithiasis Mild leukocytosis 11,000, hemoglobin and hematocrit elevated, unchanged from prior when reviewed Creatinine 1.9 which is acute, second secondary to virtual radiology CT interpretation of moderate hydronephrosis in the presence of 4 mm obstructive mid ureteral right stone Able to tolerate p.o. Right CVA tenderness, no anterior abdominal tenderness, alert and oriented x4, ambulatory steady gait, no Alcala Monge sign, no abdominal bruit or pulsatile mass, distal pulses intact Feeling significant improvement in pain after morphine and Dilaudid administration Urinalysis does not show evidence of secondary infection, 0-2 white blood cells, leukocyte Estrace and nitrate negative Case discussed with Dr. Swanson, he will follow-up with patient tomorrow or Friday Patient did have some nausea and vomiting pending discharge and was given IV Zofran, will give p.o. challenge and reassess with likely discharge home with close outpatient reassessment, Jamie barnes Suspect vomiting is secondary to Dilaudid, will change medication to morphine HPI General Date/Time Provider Initiated Documentation: 03/06/23 18:29. HPI Narrative: 63-year-old male with history of CAD presenting with right flank pain, history of kidney stones, feels similarly lower leave her patient. Denies hematuria. Self administered Toradol 10 mg prior to arrival with minimal relief in pain, denies fever, denies chills, denies any new urinary symptoms. Related Data Home Medications Medication Instructions Recorded Confirmed clopidogrel 75 mg tablet 75 mg PO DAILY 05/28/22 02/26/23 metoprolol succinate 50 mg See Rx Instructions PO DAILY #0 05/28/22 02/26/23 tablet,extended release 24 hr tabs rosuvastatin 40 mg tablet 40 mg PO DAILY 05/28/22 02/26/23 nicotine 21 mg/24 hr daily 1 patch transdermal DAILY #28 ea 05/30/22 02/26/23 transdermal patch aspirin 81 mg tablet,delayed 81 mg PO DAILY #90 tabs 12/06/22 02/26/23 release nicotine (polacrilex) 4 mg buccal 4 mg buccal Q4H PRN nicotine 12/06/22 02/26/23 lozenge cravings #81 ea sertraline 50 mg tablet 50 mg PO DAILY #90 tabs 12/06/22 02/26/23 sildenafil 100 mg tablet (Viagra) 100 mg PO DAILY #6 tab-caps 12/06/22 02/26/23 metformin 500 mg tablet 500 mg PO BID #180 tabs 02/26/23 02/26/23 nitroglycerin 0.4 mg sublingual 0.4 mg sublingual PRN #10 tabs 02/26/23 02/26/23 tablet morphine 15 mg immediate release 15 mg PO Q6H PRN #10 tabs 03/06/23 tablet ondansetron 4 mg disintegrating 4 mg PO DAILY 5 days #12 tabs 03/06/23 tablet tamsulosin 0.4 mg capsule (Flomax) 0.4 mg PO DAILY #6 caps 03/06/23 Previous Rx's Medication Instructions Recorded metoprolol succinate 50 mg See Rx Instructions PO DAILY #0 05/28/22 tablet,extended release 24 hr tabs nicotine 21 mg/24 hr daily 1 patch transdermal DAILY #28 ea 05/30/22 transdermal patch aspirin 81 mg tablet,delayed 81 mg PO DAILY #90 tabs 12/06/22 release nicotine (polacrilex) 4 mg buccal 4 mg buccal Q4H PRN nicotine 12/06/22 lozenge cravings #81 ea sertraline 50 mg tablet 50 mg PO DAILY #90 tabs 12/06/22 sildenafil 100 mg tablet (Viagra) 100 mg PO DAILY #6 tab-caps 12/06/22 metformin 500 mg tablet 500 mg PO BID #180 tabs 02/26/23 nitroglycerin 0.4 mg sublingual 0.4 mg sublingual PRN #10 tabs 02/26/23 tablet morphine 15 mg immediate release 15 mg PO Q6H PRN #10 tabs 03/06/23 tablet ondansetron 4 mg disintegrating 4 mg PO DAILY 5 days #12 tabs 03/06/23 tablet tamsulosin 0.4 mg capsule (Flomax) 0.4 mg PO DAILY #6 caps 03/06/23 Allergies Allergy/AdvReac Type Severity Reaction Status Date / Time atorvastatin calcium AdvReac Verified 03/06/23 18:19 [From Lipitor] General Stated Complaint: Urinary ANA: 3 PFSH All Active Problems (Updated 03/06/23 @ 22:22 by JAGUAR Garza) Ureterolithiasis (Acute) Hydronephrosis (Acute) Type 2 diabetes mellitus (Acute) Anxiety (Chronic) Seborrheic keratosis (Acute) BPH (benign prostatic hyperplasia) (Chronic) Bilateral knee pain (Acute) Elevated hemoglobin (Acute) COVID-19 virus infection (Acute) Alcohol abuse (Acute) History of arthroscopy of knee (Acute) History of surgical procedure (Acute) Chronic obstructive lung disease (Acute) Contracture of joint of finger of left hand (Acute) 10/12/15; [facility]; LEFT LONG FINGER Coronary artery disease (Acute 03/31/14) stent lpl 2014 mild difuse disease Depressive disorder (Acute) Essential hypertension (Acute 05/11/13) History of alcoholism (Acute) History of tobacco use (Acute) Kidney stone (Acute) Obesity (Acute) Obstructive sleep apnea syndrome (Acute) Pleuritic chest pain (Acute 03/28/14) Hyperlipidemia (Chronic) Hypertension (Chronic) Surgical History Arthroplasty of knee 06/22/14 RIGHT KNEE WITH PARTIAL MEDIAL MENISCECTOMY Arthroscopy 05/20/14; [facility]; RIGHT Family History Mother , 70's Alcohol abuse Depression Heart disease Father , 80's Cancer Stroke Sister No problems noted. Brother Depression Social History Smoking/Tobacco Use Status: Current every day Tobacco Type: cigarettes Quit status: has quit before Second Hand Exposure: Yes Smoking risk assessment performed?: Yes Alcohol Intake: current Alcohol Intake frequency: holidays/special occasions only Alcohol type: wine Drug use: Rarely Substance use type: marijuana Caregiver/Support person: Yes Household members: spouse Housing: house Do you need help understanding health information?: Never Pets and animals: Yes Pets and animals: cat(s) Sexually active: Yes Do you think of yourself as: straight/heterosexual Current gender identity: male What is your relationship status?: How often do you talk on the phone with friends or family?: twice per week Panel score (0-1 are the most socially isolated patients): 1 Frequency: 1-2 times per week Wendy/Religious: None Special wendy needs: No Seatbelt use: always Helmet use: Yes Helmet use: sometimes Drive 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 Do you feel safe at home: Yes Do you feel safe in your relationship?: Yes Course Vital Signs Vital signs: Vital Signs Temperature 37.9 C H 03/06/23 18:14 Pulse 64 03/06/23 18:14 Respiratory Rate 24 03/06/23 18:14 Blood Pressure 178/97 H 03/06/23 18:14 Pulse Oximetry 95 03/06/23 18:14 Temperature 37.9 C H 03/06/23 18:14 Temperature Source Oral 03/06/23 18:14 Pulse 64 03/06/23 18:14 Respiratory Rate 24 03/06/23 18:14 Respiratory Effort Normal 03/06/23 18:26 Blood Pressure 178/97 H 03/06/23 18:14 Blood Pressure Position Sitting 03/06/23 18:14 Pulse Oximetry 95 03/06/23 18:14 Oxygen Delivery Method Room Air 03/06/23 18:14 Oxygen Flow Rate 0 03/06/23 18:14 Pain Level 4 03/06/23 20:33 Lab/Test Results Lab/Test Results: 03/06/23 19:30 Blood Blood Culture - Pending 03/06/23 19:25 Blood Blood Culture - Pending Laboratory Tests Range/Units 03/06/23 03/06/23 03/06/23 19:10 19:10 19:10 WBC (4.4-10.8) 10^3/uL 11.42 H RBC (4.36-5.78) 10^6/uL 6.33 H Hgb (13.5-17.5) g/dL 18.9 H Hct (40.0-50.0) % 54.5 H MCV (80-95) fL 86 MCH (27.0-33.0) pg 29.9 MCHC (32.0-36.0) % 34.7 RDW (11.8-14.1) % 13.2 Plt Count (130-400) 10^3/uL 162 MPV (8.0-11.0) fL 11.1 H Immature Gran % 0.3 Neutrophils % 83.2 Lymphocytes % 9.0 Monocytes % 6.5 Eosinophils % 0.6 Basophils % 0.4 Nucleated RBC % (0.0-0.3) % 0.0 Absolute Neutrophils (1.2-6.7) 10^3/uL 9.50 H Absolute Lymphocytes (1.2-3.4) 10^3/uL 1.03 L Absolute Monocytes (0.1-0.8) 10^3/uL 0.74 Absolute Eosinophils (0.0-0.7) 10^3/uL 0.07 Absolute Basophils (0.0-0.2) 10^3/uL 0.05 VBG Lactate (0.6-1.4) mmol/L 1.2 Sodium (136-145) mmol/L 140 Potassium (3.5-5.1) mmol/L 4.4 Chloride (98-107) mmol/L 104 Carbon Dioxide (21.0-32.0) mmol/L 25.8 Anion Gap (3-11) mmol/L 10.2 BUN (7-18) mg/dL 39 H Creatinine (0.70-1.30) mg/dL 1.9 H Est GFR (CKD-EPI 2020) (mL/min/1.73m2) 38.66 Glucose (74-106) mg/dL 158 H Calcium (8.5-10.1) mg/dL 9.9 Total Bilirubin (0.2-1.0) mg/dL 0.5 AST (15-37) U/L 11 L ALT (16-63) U/L 23 Alkaline Phosphatase (46-116) U/L 103 Total Protein (6.4-8.2) g/dL 7.3 Albumin (3.4-5.0) g/dL 3.5 Lipase (16-77) U/L Urine Color (Yellow) Urine Clarity (Clear) Urine pH (5-8) Ur Specific [place] (1.005-1.025) Urine Protein (Negative) mg/dL Urine Ketones (Negative) mg/dL Urine Blood (Negative) Urine Nitrite (Negative) Urine Bilirubin (Negative) Urine Urobilinogen (Up to 0.2) mg/dL Ur Leukocyte Esterase (Negative) Urine RBC (0-2) HPF Urine WBC (0-5) HPF Ur Epithelial Cells (Negative) HPF Urine Crystals (Negative) HPF Urine Bacteria (Negative) HPF Urine Casts (Negative) LPF Urine Mucus (Negative) Urine Other (Negative) Ur Culture Indicated? Urine Glucose (Negative) mg/dL Range/Units 03/06/23 03/06/23 19:10 19:20 WBC (4.4-10.8) 10^3/uL RBC (4.36-5.78) 10^6/uL Hgb (13.5-17.5) g/dL Hct (40.0-50.0) % MCV (80-95) fL MCH (27.0-33.0) pg MCHC (32.0-36.0) % RDW (11.8-14.1) % Plt Count (130-400) 10^3/uL MPV (8.0-11.0) fL Immature Gran % Neutrophils % Lymphocytes % Monocytes % Eosinophils % Basophils % Nucleated RBC % (0.0-0.3) % Absolute Neutrophils (1.2-6.7) 10^3/uL Absolute Lymphocytes (1.2-3.4) 10^3/uL Absolute Monocytes (0.1-0.8) 10^3/uL Absolute Eosinophils (0.0-0.7) 10^3/uL Absolute Basophils (0.0-0.2) 10^3/uL VBG Lactate (0.6-1.4) mmol/L Sodium (136-145) mmol/L Potassium (3.5-5.1) mmol/L Chloride (98-107) mmol/L Carbon Dioxide (21.0-32.0) mmol/L Anion Gap (3-11) mmol/L BUN (7-18) mg/dL Creatinine (0.70-1.30) mg/dL Est GFR (CKD-EPI 2020) (mL/min/1.73m2) Glucose (74-106) mg/dL Calcium (8.5-10.1) mg/dL Total Bilirubin (0.2-1.0) mg/dL AST (15-37) U/L ALT (16-63) U/L Alkaline Phosphatase (46-116) U/L Total Protein (6.4-8.2) g/dL Albumin (3.4-5.0) g/dL Lipase (16-77) U/L 56 Urine Color (Yellow) Yellow Urine Clarity (Clear) Clear Urine pH (5-8) 5.5 Ur Specific [place] (1.005-1.025) >= 1.030 H Urine Protein (Negative) mg/dL >=300 H Urine Ketones (Negative) mg/dL Negative Urine Blood (Negative) Moderate H Urine Nitrite (Negative) Negative Urine Bilirubin (Negative) Negative Urine Urobilinogen (Up to 0.2) mg/dL 0.2 Ur Leukocyte Esterase (Negative) Negative Urine RBC (0-2) HPF 10-20 H Urine WBC (0-5) HPF 0-2 Ur Epithelial Cells (Negative) HPF Rare Urine Crystals (Negative) HPF Few Uric Acid Urine Bacteria (Negative) HPF Negative Urine Casts (Negative) LPF 0-2 Hyaline Urine Mucus (Negative) Trace Urine Other (Negative) Negative Ur Culture Indicated? No Urine Glucose (Negative) mg/dL Negative
[2023-03-06] MEDS: Ondansetron 4 MG/2 ML VIAL (22:54)
[2023-03-06] MEDS: Ondansetron O.D.T. 4 MG TABEF PO (23:39)
[2023-03-06 23:40] VITALS: BP 170/99; PULSE 52; RESP 18; TEMP 36.6; O2SAT 96
== END 2023-03-06 23:52 | disposition home or self-care (01) ==
PROVIDERS: Emergency Provider Physician Assistant; PCP Nurse Practitioner Family
DX: N13.2 Hydronephrosis with renal and ureteral calculous obstruction; R11.2 Nausea with vomiting, unspecified; E11.9 Type 2 diabetes mellitus without complications; I10 Essential (primary) hypertension; Z79.899 Other long term (current) drug therapy; F17.200 Nicotine dependence, unspecified, uncomplicated
CPT/HCPCS: 80053; 83690; 87040; 96361; 96374; 96375; 99285; 74176; 81003; 81015; 83605; 85025; J1170; J2270; J2405

== ENCOUNTER → 2023-03-10 14:49 | Outpatient (BNVA) | payer MEDICARE, SELFPAY | PROVIDERS: PCP Nurse Practitioner Family; Referring Provider Nurse Practitioner Family; Visit Provider Urology | DX: N20.0 Calculus of kidney (principal); N20.1 Calculus of ureter | CPT/HCPCS: 81003; 99214 ==

== ENCOUNTER 2023-03-12 03:47 | Outpatient (CLI) | payer MEDICARE, SELFPAY ==
[2023-03-12 14:21] LABS: Anion Gap 9.8 mmol/L (3-11); BUN 30 mg/dL (7-18); CO2 25.2 mmol/L (21.0-32.0); CREATININE 1.3 mg/dL (0.70-1.30); Calcium 9.8 mg/dL (8.5-10.1); Chloride 105 mmol/L (98-107); Estimated GFR 60.96 (mL/min/1.73m2); Glucose 112 mg/dL (74-106); Sodium 140 mmol/L (136-145)
== END 2023-03-12 03:48 | disposition home or self-care (01) ==
PROVIDERS: PCP Nurse Practitioner Family; Referring Provider Student in an Organized Health Care Education/Training Program; Visit Provider Student in an Organized Health Care Education/Training Program
DX: N20.0 Calculus of kidney (principal)
CPT/HCPCS: 36415; 80048

== ENCOUNTER 2023-04-14 15:18 | Outpatient (CLI) | payer MEDICARE, SELFPAY ==
--- NOTE | 2023-04-14 11:15 | DI.RAD_ITS ---
Exam(s) XR KNEE RT 3V AP,LAT,CIARAN EXAM: XR KNEE RT 3V AP,LAT,CIARAN CLINICAL HISTORY: RIGHT KNEE PAIN. TECHNIQUE: 2D digital imaging was performed of the right knee. Three views obtained. AP, lateral an d PA tunnel views were obtained. COMPARISON: CR RIGHT KNEE 3 VIEWS from 05/23/2014 FINDINGS: BONES: No acute fracture is present. No bony destructive lesion is seen. There are enthesophytes at t he anterior patella. JOINTS: There are marked degenerative changes seen in the right knee characterized a joint space narr owing and osteophytes. The findings are most marked at the patellofemoral joint. No joint effusion is seen. SOFT TISSUE: Vascular clips are seen in the medial soft tissues. Atherosclerosis is present. IMPRESSION: Marked osteoarthritis of the right knee. DATA REPOSITORY: RADIATION DOSE DELIVERED:
--- NOTE | 2023-04-14 11:15 | DI.RAD_ITS ---
Exam(s) XR KNEE LT 3V AP,LAT,CIARAN EXAM: XR KNEE LT 3V AP,LAT,CIARAN CLINICAL HISTORY: LEFT KNEE PAIN. TECHNIQUE: 2D digital imaging was performed of the left knee. Three images were obtained. AP, late ral and PA tunnel views were obtained. COMPARISON: CR LEFT KNEE 3 VIEW COMPLETE from 04/27/2015 FINDINGS: BONES: No acute fracture is present. No bony destructive lesion is seen. JOINTS: Marked degenerative changes are seen in the left knee characterized by joint space narrowing and osteophytes. The findings are most marked at the patellofemoral joint. No joint effusion is see n. No loose body. SOFT TISSUE: Vascular calcifications are present. IMPRESSION: Marked osteoarthritis of the knee. DATA REPOSITORY: RADIATION DOSE DELIVERED:
== END 2023-04-14 15:19 | disposition home or self-care (01) ==
LOC: DIORS 15:18
PROVIDERS: PCP Nurse Practitioner Family; Referring Provider Nurse Practitioner Family; Visit Provider Student in an Organized Health Care Education/Training Program
DX: M17.11 Unilateral primary osteoarthritis, right knee; M17.12 Unilateral primary osteoarthritis, left knee
CPT/HCPCS: 20610; 73562; 99214; J1040

== ENCOUNTER → 2023-05-26 09:58 | Outpatient (BNVA) | payer MEDICARE, SELFPAY | PROVIDERS: PCP Nurse Practitioner Family; Referring Provider Nurse Practitioner Family; Visit Provider Nurse Practitioner Gerontology | DX: R10.32 Left lower quadrant pain (principal); E11.9 Type 2 diabetes mellitus without complications | CPT/HCPCS: 81003; 99215 ==

== ENCOUNTER 2023-05-28 08:49 | Outpatient (CLI) | payer MEDICARE, SELFPAY ==
[2023-05-29 09:15] LABS: Lyme Ab w Rflx to Lyme Confirm Negative (Negative)
[2023-05-31 00:16] LABS: Anaplasma phagocytophilum Negative (Negative); B. miyamotoi PCR Negative (Negative); Babesia divergens/MO-1 Negative (Negative); Babesia duncani Negative (Negative); Babesia microti Negative (Negative); Ehrlichia chaffeensis Negative (Negative); Ehrlichia ewingii/canis Negative (Negative); Ehrlichia muris eauclairensis Negative (Negative)
== END 2023-05-28 08:50 | disposition home or self-care (01) ==
LOC: LOS 08:49
PROVIDERS: PCP Nurse Practitioner Family; Visit Provider Nurse Practitioner Family
DX: M25.561 Pain in right knee (principal); M25.562 Pain in left knee; M79.18 Myalgia, other site
CPT/HCPCS: 36415; 87798; 86618

== ENCOUNTER → 2023-06-23 02:51 | Outpatient (CLI) | payer MEDICARE, SELFPAY ==
--- NOTE | 2023-06-23 11:00 | DI.CT_ITS ---
Exam(s) CT ABDOMEN PELVIS WO EXAM: CT ABDOMEN PELVIS WO CLINICAL HISTORY: URIC ACID NEPHROLITHIASIS N20.0 EVAL STONE BURDEN. TECHNIQUE: Imaging Protocol: Axial computed tomography images with coronal and sagittal reformatted images were created and reviewed CONTRAST MATERIAL: Intravenous: none Oral: None COMPARISON: CT CT ABDOMEN PELVIS WO from 03/06/2023 FINDINGS: VISUALIZED LUNG BASES: Small 3 millimeter nodule in the left lower lobe is unchanged.. ABDOMEN: There is no ascites. LIVER: There are no obvious focal hepatic lesions evident of this noninfused study. GALLBLADDER/BILIARY: No obvious gallbladder pathology. CBD is not dilated. PANCREAS: Solitary small calcification in the uncinate process of the pancreas again noted. No pancr eatic masses. The pancreatic duct is not dilated. SPLEEN: Spleen is not enlarged. No obvious intrasplenic lesions. ADRENALS: No significant findings KIDNEYS:Benign cysts in both kidneys appear unchanged. Multiple calculi are again noted in the left kidney. The largest of these is oval in shape, measuring 10 by 8 mm and again located on the depende nt aspect of the renal pelvis. The multiple other calculi in the kidney are again noted. There appe ars to be an additional calculus in the lower pole calyx as well as all the other calculi in the left kidney. ABDOMINAL AORTA: Calcified but not enlarged. Common iliac arteries are also calcified but not enlarg ed. LYMPH NODES: There is no retroperitoneal nor paraaortic adenopathy. ABDOMINAL WALL: Fat only containing left inguinal hernia noted. GI: There is no evidence of bowel obstruction, free air, nor abscess. PELVIS: LYMPH NODES: There is no intrapelvic nor inguinal adenopathy. GI: No evidence of appendicitis.The sigmoid is redundant, reaching up into the abdomen. No evidence of sigmoid volvulus. There is scattered diverticuli in left side of the colon.No evidence of obvious acute diverticulitis. URINARY BLADDER: Bladder wall mildly thickened. There is a tiny 1 millimeter calculus in the anterio r lumen of the bladder. REPRODUCTIVE: Prostate size normal. No obturator adenopathy. Seminal vesicles unremarkable. Prosta te indents the bladder base. OSSEOUS: No acute fractures. Multilevel chronic degenerative disc disease. Also element of anteroli sthesis of L5 upon S1. Mild compression fracture L1 nonacute. IMPRESSION: 1. Multiple calculi are again noted in the left kidney with the largest being in the renal pelvis, si milar to previous. No true hydronephrosis nor perinephric fluid. Multiple benign cysts are again no navya in the kidneys. No solid renal lesions. 2. Mild uniform bladder wall thickening. 1 millimeter calcification noted in the anterior wall of th e urinary bladder there is no gas in the bladder wall. No Jacqueline visit colour fat streaking. Prostate size upper normal. 3. RADIATION DOSE DELIVERED: 1,504.04mGy.cm Total DLP DATA REPOSITORY: All CT scans at this facility are submitted to the National Radiology Data Registry (NRDR) Dose Index Registry (DIR) with the [employer] (ACR). RADIATION OPTIMIZATION: All CT scans at this facility use at least one of these dose optimization te chniques: automated exposure control; mA and/or kV adjustment per patient size (includes targeted exa ms where dose is matched to clinical indication); or iterative reconstruction.
== END ==
PROVIDERS: PCP Nurse Practitioner Family; Visit Provider Urology
DX: N20.0 Calculus of kidney (principal); R93.41 Abnormal radiologic findings on diagnostic imaging of renal pelvis, ureter, or bladder
CPT/HCPCS: 74176

== ENCOUNTER 2024-04-29 03:38 | Outpatient (CLI) | payer MEDICARE, SELFPAY ==
[2024-04-29 13:22] LABS: Anion Gap 7.2 mmol/L (3-11); BUN 33 mg/dL (7-18); CO2 28.8 mmol/L (21.0-32.0); CREATININE 1.4 mg/dL (0.70-1.30); Calcium 9.6 mg/dL (8.5-10.1); Calculated LDL 74 mg/dL (<100); Chloride 108 mmol/L (98-107); Cholesterol 140 mg/dL (<200); Estimated GFR 55.43 (mL/min/1.73m2); Glucose 127 mg/dL (74-106); HDL Cholesterol 44 mg/dL (40-60); Potassium 4.5 mmol/L (3.5-5.1); Sodium 144 mmol/L (136-145); Triglyceride 111 mg/dL (<150)
[2024-04-29 17:47] LABS: PSA, Screening 1.3 ng/mL (<=4.5)
== END 2024-04-29 03:39 | disposition home or self-care (01) ==
LOC: LOS 03:39
PROVIDERS: PCP Nurse Practitioner Family; Visit Provider Nurse Practitioner Family
DX: I10 Essential (primary) hypertension (principal); Z13.6 Encounter for screening for cardiovascular disorders; Z12.5 Encounter for screening for malignant neoplasm of prostate
CPT/HCPCS: 36415; 80048; 80061; 84153

== ENCOUNTER 2024-07-09 11:38 | Outpatient (CLI) | payer MEDICARE, SELFPAY ==
--- NOTE | 2024-07-09 10:30 | DI.MRI_ITS ---
Exam(s) MR LUMBAR SPINE WO EXAM: MR LUMBAR SPINE WO CLINICAL HISTORY: Low back pain,chronic, m54.50, g89.29. TECHNIQUE: Multiplanar multisequence MRI of the Lumbar spine was performed. COMPARISON: CT CT ABDOMEN PELVIS WO from 06/23/2023 FINDINGS: Bones: The last intervertebral disc space is designated the L5/S1 level for the numbering purpose of this examination. There is again seen L5 spondylolysis and grade 1 spondylolisthesis of L5 on S1. There are endplate osteophytes at multiple levels of the lumbar spine. There is facet arthropathy mu ltiple levels particularly at L4-5 and L5-S1. Endplate degenerative signal changes are present. Cord: The conus tip ends at the L1 level. It is of normal size and signal intensity. T12-L1: No disc herniations or bulges are present. No central spinal canal or neural foraminal stenos is. L1-2: There is a mild diffuse disc bulge eccentric to the left. This does cause mild narrowing of th e left neural foramen. There is also mild central spinal canal narrowing. No significant right neur al foraminal stenosis is present. No central spinal canal or neural foraminal stenosis. L2-3: There is a diffuse disc bulge and facet arthropathy causing moderate narrowing of the central s steven canal. There is mild narrowing of the left neural foramen. No significant right neural forami nal stenosis is present. L3-4: There is a mild diffuse disc bulge. There are degenerative changes of the facets. There is mi ld narrowing of the central spinal canal. There is mild bilateral neural foraminal narrowing. L4-5: There is a mild diffuse disc bulge. There are degenerative changes of the facets. No signific ant central spinal canal stenosis is seen. There is marked bilateral neural foraminal stenosis. L5-S1: No disc herniations or bulges are present. There is no significant central spinal canal stenos is. There is mild bilateral neural foraminal stenosis. Soft tissues: The visualized SI joints and sacrum are well maintained. The paraspinal soft tissues ar e unremarkable. Visualized abdominal organs: Note is made of bilateral renal cysts. No follow-up is recommended. IMPRESSION: Multilevel degenerative changes and L5 spondylolysis with grade 1 spondylolisthesis of L5 on S1 resul ting in central spinal canal and neural foraminal stenosis. The findings are most marked at L4-L5. Please see the above discussion for complete details. DATA REPOSITORY:
== END 2024-07-09 11:58 ==
LOC: DI 11:39
PROVIDERS: PCP Nurse Practitioner Family; Visit Provider Nurse Practitioner Family
DX: M43.16 Spondylolisthesis, lumbar region
CPT/HCPCS: 72148

== ENCOUNTER 2024-09-09 15:04 | Outpatient (CLI) | payer MEDICARE, SELFPAY ==
--- NOTE | 2024-09-09 08:30 | DI.RAD_ITS ---
Exam(s) XR KNEE LT 1V XR STANDING ALIGNMENT XR KNEE RT 1V EXAM: XR STANDING ALIGNMENT and bilateral XR knee 1 V CLINICAL HISTORY: TKR planning. TECHNIQUE: 2D digital imaging was performed. Six images were obtained. COMPARISON: CR XR KNEE RT 3V AP,LAT,CIARAN from 04/14/2023 CR XR KNEE LT 3V AP,LAT,CIARAN from 04/14/2023 FINDINGS: BONES: The hips are well maintained. In the right knee, there is marked narrowing of the medial femo ral tibial joint and the patellofemoral joint. Osteophytes are seen in all 3 joint compartments. No significant joint effusion is seen. There are enthesophytes at the anterior patella. Vascular calc ifications and surgical clips are seen in the soft tissues. In the left knee, there is marked narrow ing of the medial femoral tibial joint and the patellofemoral joint. Osteophytes are seen in all 3 j oint compartments, particularly the patellofemoral joint. There is a small joint effusion. Vascular calcifications are seen in the soft tissues. The ankles are well maintained.There is no significant leg length discrepancy. SOFT TISSUE: Normal. IMPRESSION: Marked osteoarthritis of the knees. DATA REPOSITORY: RADIATION DOSE DELIVERED:
== END 2024-09-09 15:05 | disposition home or self-care (01) ==
LOC: DIORS 15:05
PROVIDERS: PCP Nurse Practitioner Family; Referring Provider Nurse Practitioner Family; Visit Provider Student in an Organized Health Care Education/Training Program
DX: M17.11 Unilateral primary osteoarthritis, right knee (principal); M17.12 Unilateral primary osteoarthritis, left knee; E11.9 Type 2 diabetes mellitus without complications; Z86.79 Personal history of other diseases of the circulatory system
CPT/HCPCS: 99214; 73560; 77073

== ENCOUNTER 2024-11-18 08:40 | Outpatient (CLI) | payer MEDICARE, SELFPAY ==
[2024-11-18 12:40] LABS: HCT 54.4 % (40.0-50.0); HGB 18.1 g/dL (13.5-17.5); MCH 29.1 pg (27.0-33.0); MCHC 33.3 % (32.0-36.0); MCV 87 fL (80-95); MPV 11.8 fL (8.0-11.0); Platelet Count 169 10^3/uL (130-400); RBC 6.23 10^6/uL (4.36-5.78); RDW 13.4 % (11.8-14.1); RDW-SD 42.6 fL; WBC 7.69 10^3/uL (4.4-10.8)
[2024-11-18 12:41] LABS: Anion Gap 8.1 mmol/L (3-11); BUN 20 mg/dL (7-18); CO2 25.9 mmol/L (21.0-32.0); CREATININE 1.1 mg/dL (0.70-1.30); Calcium 9.5 mg/dL (8.5-10.1); Chloride 106 mmol/L (98-107); Estimated GFR 74.04 (mL/min/1.73m2); Glucose 161 mg/dL (74-106); Potassium 4.5 mmol/L (3.5-5.1); Sodium 140 mmol/L (136-145)
[2024-11-18 13:26] LABS: Calculated LDL 91 mg/dL (<100); Cholesterol 169 mg/dL (<200); HDL Cholesterol 44 mg/dL (>or=40); Triglyceride 171 mg/dL (<150)
[2024-11-19 10:00] LABS: Lyme Ab w Rflx to Lyme Confirm Negative (Negative)
[2024-11-20 23:22] LABS: Anaplasma phagocytophilum Negative (Negative); B. miyamotoi PCR Negative (Negative); Babesia divergens/MO-1 Negative (Negative); Babesia duncani Negative (Negative); Babesia microti Negative (Negative); Ehrlichia chaffeensis Negative (Negative); Ehrlichia ewingii/canis Negative (Negative); Ehrlichia muris eauclairensis Negative (Negative)
[2024-11-21 08:44] LABS: Fructosamine 231 mcmol/L (200 - 285)
== END 2024-11-18 08:41 | disposition home or self-care (01) ==
LOC: LOS 08:40
PROVIDERS: PCP Nurse Practitioner Family; Visit Provider Student in an Organized Health Care Education/Training Program
DX: M17.11 Unilateral primary osteoarthritis, right knee (principal); Z01.818 Encounter for other preprocedural examination; E11.9 Type 2 diabetes mellitus without complications; W57.XXXA Bitten or stung by nonvenomous insect and other nonvenomous arthropods, initial encounter; Z13.6 Encounter for screening for cardiovascular disorders
CPT/HCPCS: 36415; 80048; 80061; 85027; 87798; 82985; 86618

== ENCOUNTER 2024-12-08 09:22 | Day surgery (SDC) | payer MEDICARE, SELFPAY ==
[2024-12-08] VITALS (13 sets, daily range): BP systolic 104–150; BP diastolic 76–99; PULSE 57–70; RESP 11–20; TEMP 35.8–36.6; O2SAT 95–98; BMI 40.6
--- NOTE | 2024-12-08 07:35 | W.PM.DSUDISC ---
Date of service: 12/08/24 Discharge Plan Disposition Patient Disposition: Home Condition: Good Discharge Details Reason For Visit: R TKR Attending Provider: Jose C Cintron Primary Care Provider: Abrahan Izquierdo Home Meds and New Rx's Prescriptions: New celecoxib 200 mg capsule 200 mg PO BID Qty: 60 0RF aspirin 81 mg tablet,delayed release (DR/EC) 81 mg PO BID Qty: 60 0RF acetaminophen 500 mg tablet 1,000 mg PO TID Qty: 90 3RF pantoprazole 40 mg tablet,delayed release (DR/EC) 40 mg PO DAILY Qty: 14 0RF dexamethasone 4 mg tablet 4 mg PO DAILY Qty: 2 0RF docusate sodium 100 mg capsule 100 mg PO BID PRNQty: 28 0RF gabapentin 300 mg capsule 300 mg PO QHS Qty: 14 0RF oxycodone 5 mg tablet 5 mg PO Q4H PRNQty: 18 0RF Continued nitroglycerin 0.4 mg tablet, sublingual 0.4 mg Sublingual PRN Qty: 10 3RF lisinopril 10 mg tablet 30 mg PO DAILY Qty: 90 3RF (DME) lancets [OneTouch Delica Plus Lancet] 30 gauge misc See Rx Instructions .Route Qty: 100 3RF Rx Instructions: Daily (DME) blood-glucose meter [OneTouch Ultra2 Meter] Misc See Rx Instructions .Route Qty: 1 3RF Rx Instructions: Daily (DME) OneTouch Ultra Test Strip See Rx Instructions .Route Qty: 100 3RF Rx Instructions: Daily potassium citrate 99 mg capsule 198 mg PO DAILY Qty: 180 3RF Patient Comments: per patient he only takes 99mg BID metformin 500 mg tablet 500 mg PO BID Qty: 180 3RF rosuvastatin 40 mg tablet 40 mg PO DAILY Qty: 90 3RF metoprolol succinate 50 mg tablet extended release 24 hr See Rx Instructions PO DAILY Qty: 90 3RF Rx Instructions: 50 mg QAM, 25 mg (0.5 tab) QPM orally daily; sildenafil [Viagra] 100 mg tablet 100 mg PO DAILY PRN Discontinued aspirin 81 mg tablet,delayed release (DR/EC) 81 mg PO DAILY Qty: 90 3RF Discharge Instructions Additional Instructions: Total Knee Discharge Instructions Activity: The most important activity is to walk and to work on gentle motion (both flexion and extension). You should try to take short walks a few times a day. It is important that when resting you work on keeping the knee straight. Avoid putting a pillow behind the knee as this will encourage flexion. Work on range of motion exercises as provided by Physical Therapy. - Start outpatient physical therapy within 2 weeks. - You should wear the VAHID hose on both legs for 2 weeks. You may remove these at night. You may also use any compression sock in place of the VAHID hose. - Utilize [employer] to review exercises, see videos on exercises and obtain basic information pertaining to your surgery and your recovery. Dressing: Remove the Mike wrap by 2 days after your surgery and put on the VAHID stocking given to you from the hospital. Keep the surgical dressing (underneath the MIKE wrap) in place for at least one week. After the first week it may be removed and replaced with light gauze and tape or nothing. The wound and dressing may get wet after 3 days but avoid soaking the dressing or otherwise it will need to be changed. Many people prefer covering the dressing with cling wrap (saran wrap) to minimize it from getting soaked. If it gets wet, just pat dry. If it starts to peel off then it will need to be changed. Medications: - You should take Tylenol and anti-inflammatory Celebrex as your primary pain control medications. If the Celebrex is too expensive or not covered, please call the office for another alternative (Advil/Ibuprofen or Naproxen/Aleve) - You have been prescribed a stronger pain medication Oxycodone for breakthrough pain, take as needed as prescribed. - You have also been prescribed a stomach acid reduction agent Pantoprozole to help reduce stomach acid and reflux. - You have been prescribed Gabapentin to take at night for restlessness and nerve pain. - You will be taking Aspirin 81mg twice a day for DVT prevention unless instructed otherwise. - You have also been prescribed Decadron to take to control post-operative nausea and pain. You will start this tomorrow. - If you have constipation you should take Colace or Miralax (both [id number]). It takes most people 3-4 days to have a bowel movement. Follow-up: 2 weeks If you have any acute concerns or questions, please do not hesitate to contact the office at [phone]. You may contact Dr. Cintron with any questions after hours through the hospital at [phone] or on his cell phone at [phone]. Referrals: Jose C Cintron MD [ [facility]YSICIAN, Orthopaedic Surgical] Equipment/Supplies: Walker Activity:: Activity as Tolerated Shower/Bathe:: 72 hours Diet:: As Tolerated Discharge Orders Discharge Orders: Discharge Order (Routine); Ordered 12/08/24 Ordered By: Cirilo Granger DS: Diagnosis Discharge Diagnosis (1) Degenerative joint disease of right knee: Status: Acute
[2024-12-08] MEDS: Celecoxib 200 MG CAP 400 MG PO (10:20)
[2024-12-08] MEDS: Acetaminophen 500 MG TAB 1000 MG PO (10:20)
[2024-12-08] MEDS: Gabapentin 300 MG CAP PO (10:20)
[2024-12-08] MEDS: Lactated Ringers 1,000 ML 80 ML IV (10:37)
--- NOTE | 2024-12-08 10:43 | W.ANESPRE ---
General Info Date of Service Date Performed: 12/08/24 Height: 5 ft 9 in Weight: 124.8 kg Body Mass Index (BMI): 40.6 Surgical Procedure: Operation Date: 12/08/24 12:40 Proposed Procedure Side Surgeon p Knee Total Arthroplasty Right Jose C Cintron MD Actual Procedure Side Surgeon p Knee Total Arthroplasty Right Jose C Cintron MD Pre-Op Diagnosis Post-Op Diagnosis Degenerative joint disease of right knee Meds Allergies and Home Medications Allergies Allergy/AdvReac Type Severity Reaction Status Date / Time atorvastatin calcium (From AdvReac unknown Verified 12/08/24 09:54 Lipitor) Home Medication ?Medication ?Instructions ?Recorded blood sugar diagnostic (ProntoFormsTouch #100 ea 06/11/23 Ultra Test strips) blood-glucose meter (ProntoFormsTouch #1 ea 06/11/23 Ultra2 Meter) lancets 30 gauge (ProntoFormsTouch Delica #100 ea 06/11/23 Plus Lancet) nitroglycerin 0.4 mg sublingual 0.4 mg sublingual PRN #10 tabs 02/13/24 tablet potassium citrate 99 mg capsule 198 mg (2 x 99 mg) PO DAILY #180 05/03/24 caps metformin 500 mg tablet 500 mg PO BID #180 tabs 09/24/24 rosuvastatin 40 mg tablet 40 mg PO DAILY #90 tabs 09/29/24 metoprolol succinate 50 mg See Rx Instructions PO DAILY #90 10/29/24 tablet,extended release 24 hr tabs lisinopril 10 mg tablet 30 mg (3 x 10 mg) PO DAILY #90 tabs 12/03/24 sildenafil 100 mg tablet (Viagra) 100 mg PO DAILY PRN 12/07/24 acetaminophen 500 mg tablet 1,000 mg (2 x 500 mg) PO TID #90 12/08/24 tabs aspirin 81 mg tablet,delayed 81 mg PO BID #60 tabs 12/08/24 release celecoxib 200 mg capsule 200 mg PO BID #60 caps 12/08/24 dexamethasone 4 mg tablet 4 mg PO DAILY #2 tabs 12/08/24 docusate sodium 100 mg capsule 100 mg PO BID PRN #28 caps 12/08/24 gabapentin 300 mg capsule 300 mg PO QHS #14 caps 12/08/24 oxycodone 5 mg tablet 5 mg PO Q4H PRN #18 tabs 12/08/24 pantoprazole 40 mg tablet,delayed 40 mg PO DAILY #14 tabs 12/08/24 release Current Visit Medications: Current Medications Generic Name Dose Route Start Last Admin Trade Name Delano PRN Reason Stop Dose Admin Acetaminophen 1,000 mg 12/08/24 06:00 12/08/24 10:20 Acetaminophen 500 Mg Tab PO 12/08/24 23:59 1,000 mg PREOP ARIC Administration Acetaminophen 1,000 mg 12/08/24 07:34 Acetaminophen 500 Mg Tab PO 01/07/25 07:33 TID PRN PRN Analgesia Celecoxib 400 mg 12/08/24 06:00 12/08/24 10:20 Celecoxib 200 Mg Cap PO 12/08/24 23:59 400 mg PREOP ARIC Administration Docusate Sodium 100 mg 12/08/24 07:34 Docusate Sodium 100 Mg Cap PO 01/07/25 07:33 BID PRN PRN Constipation Gabapentin 300 mg 12/08/24 06:00 12/08/24 10:20 Gabapentin 300 Mg Cap PO 12/08/24 23:59 300 mg PREOP ARIC Administration Ringer's Solution 1,000 mls @ 80 mls/hr 12/08/24 06:00 12/08/24 10:37 IV 12/08/24 23:59 80 mls/hr INFUSION ARIC Administration Cefazolin Sodium 3,000 mg/ 100 mls @ 200 mls/hr 12/08/24 06:00 Sodium Chloride IV 12/08/24 23:59 PREOP ARIC Tranexamic Acid/Sodium Chloride 1,000 mg in 100 mls @ 600 mls/hr 12/08/24 06:00 IVPB 12/08/24 23:59 PREOP ARIC IV Miscellaneous Supplies 1 each 12/08/24 06:00 Iv Access IV 12/08/24 23:59 DIRECTED ARIC Ondansetron HCl 4 mg 12/08/24 07:34 Ondansetron 4 Mg/2 Ml Vial IVP 01/07/25 07:33 Q6H PRN PRN Nausea Oxycodone HCl 0 mg 12/08/24 07:34 Oxycodone 5 Mg Tab PO 01/07/25 07:33 Q3H PRN PRN Pain Polyethylene Glycol 17 gm 12/08/24 07:34 Polyethylene Glycol 3350 17 Gm Packet PO 01/07/25 07:33 BID PRN PRN Constipation Sodium Chloride 0 ml 12/08/24 06:00 Normal Saline Flush 10 Ml Syr IV 12/08/24 23:59 PRN PRN Sodium Chloride 0 ml 12/08/24 06:00 Normal Saline 10 Ml Vial IJ 12/08/24 23:59 DIRECTED PRN Sterile Water 0 ml 12/08/24 06:00 Water,Injection,Sterile 10 Ml Vial IJ 12/08/24 23:59 DIRECTED PRN Tranexamic Acid 1,300 mg 12/08/24 07:34 Tranexamic Acid 650 Mg Tab PO 12/08/24 23:59 DIRECTED [facility] PFSH Active Problems Active Problems: Problem Status Onset Code Low back pain Acute M54.50 Joint pain Acute M25.50 Degenerative joint disease of right knee Acute M17.11 Left knee DJD Acute M17.12 Type 2 diabetes mellitus Acute E11.9 Anxiety Chronic F41.9 Seborrheic keratosis Acute L82.1 BPH (benign prostatic hyperplasia) Chronic N40.0 Bilateral knee pain Acute M25.561, M25.562 Elevated hemoglobin Acute D58.2 COVID-19 virus infection Acute U07.1 Alcohol abuse Acute F10.10 History of arthroscopy of knee Acute Z98.890 History of surgical procedure Acute Z98.890 Chronic obstructive lung disease Acute J44.9 Contracture of joint of finger of left hand Acute M24.542 Coronary artery disease Acute 03/31/14 I25.10 Depressive disorder Acute F32.9 Essential hypertension Acute 05/11/13 I10 History of alcoholism Acute F10.21 History of tobacco use Acute Z87.891 Kidney stone Acute N20.0 Obesity Acute E66.9 Obstructive sleep apnea syndrome Acute G47.33 Pleuritic chest pain Acute 03/28/14 R07.81 Hyperlipidemia Chronic E78.5 Hypertension Chronic I10 Surgical History Surgical History Status post arthroscopy of left knee S/P right knee arthroscopy 06/22/14 RIGHT KNEE WITH PARTIAL MEDIAL MENISCECTOMY Arthroscopy 05/20/14; [facility]; RIGHT Tobacco Smoking/Tobacco Use Status: Former Tobacco Use Passive smoking exposure: Yes Second hand exposure: Yes Alcohol Alcohol Intake: current Alcohol intake frequency: a few times a month Alcohol type: wine and hard liquor Substance Use Substance use: Rarely Substance use type: marijuana Details: mostly edible usage, one-two times a year Vital Signs and Lab Results Vital Signs Most Recent Vital Signs in EMR: Most Recent Vital Signs Temp Pulse Resp BP Pulse Ox 36.5 C 70 16 140/93 H 97 12/08/24 09:29 12/08/24 09:29 12/08/24 09:29 12/08/24 09:29 12/08/24 09:29 Lab Results Complete Blood Count: WBC, (4.4-10.8) 7.69 10^3/uL 11/18/24, 09:09 RBC, (4.36-5.78) 6.23 10^6/uL H 11/18/24, 09:09 Hgb, (13.5-17.5) 18.1 g/dL H 11/18/24, 09:09 Hct, (40.0-50.0) 54.4 % H 11/18/24, 09:09 Plt Count, (130-400) 169 10^3/uL 11/18/24, 09:09 Complete Metabolic Panel: Sodium, (136-145) 140 mmol/L 11/18/24, 09:09 Potassium, (3.5-5.1) 4.5 mmol/L 11/18/24, 09:09 Chloride, (98-107) 106 mmol/L 11/18/24, 09:09 Carbon Dioxide, (21.0-32.0) 25.9 mmol/L 11/18/24, 09:09 BUN, (7-18) 20 mg/dL H 11/18/24, 09:09 Creatinine, (0.70-1.30) 1.1 mg/dL 11/18/24, 09:09 Est GFR (CKD-EPI 2020), (mL/min/1.73m2) 74.04 11/18/24, 09:09 Calcium, (8.5-10.1) 9.5 mg/dL 11/18/24, 09:09 Glucose, (74-106) 161 mg/dL H 11/18/24, 09:09 Hemoglobin A1c, (4.5-5.7) 6.6 % H 11/12/24, 13:15 Imaging and Studies Imaging and Studies Study information below may be from another EMR and interpreted by another provider. Please see original notes in EMR for more complete details. EKG Summary: 05/16/22: Exam: Resting ECG Reason for Exam: chest pain Patient Location: E HR:52 bpm ECG Measurements Heart Rate 52 AXIS VT [id number] P [id number] QRSd 132 QRS 43 QT 424 T52 QTc 394 Conclusion Atrial fibrillation...V-rate 48- 54, irreg A-activity IVCD, consider RBBB...QRSd>120mS, terminal axis(90,270) Stress Test Summary: 12/24/17: Impressions: - Test switched to Lexiscan because patient was unable to achieve target heart rate. - Normal study after pharmacologic stress. Summary: 1. Myocardial perfusion imaging: No myocardial perfusion defects noted. 2. The calculated left ventricular ejection fraction after stress: 58%. LV global systolic function is normal. No left ventricular regional motion abnormality. 3. Stress ECG conclusions: The stress ECG is negative to less than 85% MPHR. 4. Stress: The target heart rate was not achieved. The heart rate response to stress is blunted. There is resting hypertension with a hypertensive response to stress. The patient experienced no chest pain during stress. The patient experienced dyspnea in response to stress. Exercise capacity is good (10 METS). Peak stress oxygen saturation: 96% . 5. Imaging information: gated. Image quality reduced due to diaphragmatic attenuation. Attenuation correction used. Echocardiogram Summary: 03/13/15: Summary: 1. Left ventricle: The cavity size was normal. Wall thickness was normal. Systolic function was normal. The estimated ejection fraction was 65%. Wall motion was normal; there were no regional wall motion abnormalities. 2. Left atrium: The atrium was mildly dilated. 3. Right ventricle: The cavity size was normal. Wall thickness was normal. Systolic function was normal. 4. Right atrium: The atrium was mildly dilated. 5. Pulmonary arteries: Pulmonary systolic pressure was in the range of 20mm Hg to 30mm Hg. 6. Inferior vena cava: The vessel was normal in size; the respirophasic diameter changes were in the normal range (greater than or equal to 50%); findings are consistent with normal central venous pressure. Anesthesia Assessment and Plan Anesthesia History Personal History: No History of Anesthesia Complications Family History: No Family History of Anesthesia Complications Exercise Tolerance Exercise Tolerance: Metabolic Equivalents>4 Pertinent Negatives Pertinent Negatives: No Symptoms of GERD, No Major Cardiovascular Symptoms or Complaints and No Major Pulmonary Symptoms or Complaints Cardiac & Pulmonary Exam Cardiac Exam: Normal S1/S2 Heart Sounds Pulmonary Exam: Clear Bilateral Breath Sounds Implantable Cardiac Device Does patient have a Pacemaker or an ICD?: No Airway Exam Known Difficult Airway: No Mallampati Class: 2 Mouth Opening: Normal (> 3cm) Thyromental Distance: Greater than 3 cm Neck Range of Motion: Full ROM Neck Circumference: Thick Teeth Condition: Normal Dentition ASA Classification ASA Score: ASA 3 Emergency Case?: No NPO Status NPO Status: NPO Clears >2 hours, Solids >8 hours Anesthesia Plan Resuscitation Status: Full Code Anesthesia Technique: Spinal Anesthesia Airway Planned: Natural Airway Pain Management: Surgeon and patient request nerve block Monitors Used: Standard Monitors Preoperative Comments:: COPD well controlled, sleep apnea. Blood pressure well controlled today, took lisinopril last evening. Plan to proceed with elective nerve block and SAB with GA/ETT backup.
[2024-12-08] MEDS: ceFAZolin 3,000 MG in Normal Saline 100 ML 200 MG IV (11:29)
[2024-12-08] MEDS: TRANEXAMIC ACID/SOD. CHL. 1,000 MG/100 ML BAG 600 MG IVPB (11:49)
--- NOTE | 2024-12-08 12:36 | W.ANESNERVE ---
Nerve Block Single Injection Procedure Date and Time Date Performed: 12/08/24 Procedure Start: 11:11 Location Where Procedure Performed Procedure Location: Day Surgery Unit Reason Performed: Postoperative Analgesia Requesting Provider: Jose C Cintron Timeout Performed Timeout Performed: Yes Monitoring Used ECG, Blood Pressure, SpO2 and See EMR for corresponding vital signs Sterility Sterility: Hand Hygiene, Surgical Cap, Surgical Mask, Sterile Gloves and Chlorhexidine Sedation Given During Procedure Sedation Given (Indicate Dose Given): Versed IV Dose:: 2mg Patient Mental Status Patient Mental Status: Sedate with meaningful communication Nerve Block 1st Nerve Block: Laterality: Right Block Type: Adductor Canal Ultrasound Image Saved?: Yes Needle / Catheter Used: 100mm SonoPlex II Local Anesthetic Bolus (Indicate Dose Given): Lidocaine used for local infiltration of skin, Injected in 3-5ml increments after negative blood aspiration, Bupivacaine 0.25% Dose:: 10mL and Exparel Dose:: 10mL Additives (Indicate Dose Given): None Ultrasound: Sterile probe cover and gel used Nerve Stimulator: Supplement to Ultrasound use and No twitch or parasthesia noted < 0.5 mA Paresthesia: None Procedure Tolerated: No Complications Procedure Outcome: Successful Performed By: Michelle Rod
--- NOTE | 2024-12-08 13:09 | W.PM.OP ---
Operative Note Operative Note PRE-OP DIAGNOSIS: Right Knee Osteoarthritis POST-OP DIAGNOSIS: same PROCEDURE: Right Total Knee Replacement SURGEON: Jose C Cintron PROGRESSIVE CARE UNIT REGISTERED NURSE: Judy Granger ANESTHESIA TYPE: Spinal Refer to Anesthesia Record ESTIMATED BLOOD LOSS: 150 PATHOLOGY: none sent TOURNIQUET TIME: 0 COMPLICATIONS: None Patient was transported to: PACU Patient's condition: stable Implants: 1. Depuy Attune Cementless Cruciate Retaining Femoral Component, Size 7 2. Depuy Attune Cementless Fixed Bearing Tibial Component, Size 7 3. Depuy Attune 7x6mm CR/FB Poly 4. Depuy Attune Patellar Component, Size 35 Indications: I have seen Judy in clinic for symptoms of knee arthritis, confirmed with radiographic findings. He has exhausted nonoperative methods and was having significant limitations in daily function and desired better function and less pain. I discussed the technical details of a knee replacement. I explained the risks of the procedure to include, but not limited to, bleeding, infection, pain, stiffness, fracture, damage to nerves and vessels, damage to muscles and tendons, loosening, need for repeat procedure, blood clot and cardiopulmonary demise. Despite these risks, Judy elected to proceed. Findings: There was significant signs of arthritis throughout the knee. Procedure Description: Judy was greeted in the preoperative holding area where the correct side was identified and marked. The consent was reviewed with the patient and signed. The history and physical was updated. All questions were answered. Preoperative medications were administered: Acetaminophen 1000mg, Celebrex 400mg, and Gabapentin 300mg. An adductor canal block was then administered by the anesthesia team in the [facility]. He was taken back to the operating room. A spinal anesthestic was then administered. The patient was placed into the supine position on the operating room table. Posts were placed for positioning during the procedure. All bony prominences were well padded. Prophylactic antibiotics in the form of Cefazolin were administered. 1g of Tranxemic Acid was given intravenously within 30 minutes of incision. The right leg was then prepped with Chloraprep and draped in a standard fashion with impervious stockinette. A second prep with Chloraprep was performed prior to application of Iodine impregnated skin protection. A timeout to confirm correct identity, side and site, procedure, allergies, anesthesia, and medical concerns was performed. With the knee in some flexion, a midline incision was made overlying the knee. Full thickness skin flaps were raised once the extensor mechanism was encountered. These were raised medially and laterally. Any bleeding was controlled with electrocautery. Once the extensor mechanism was fully exposed, a medial parapatellar arthrotomy was performed in a flexed position. All bleeding from the arthrotomy and the geniculate arteries was coagulated. A medial subperiosteal peel was performed with electrocautery to the midcoronal plane. Due to the significant varus deformity the entire medial tibial plateau was exposed. The fat pad was removed while keeping the patellar tendon protected. The anterior distal femur synovium was removed for later visualization. The ACL and PCL were resected and the anterior horn of the lateral meniscus was transected. The knee was then flexed with the patella everted. Large osteophytes from the tibia were removed. Large osteophytes from the femur were removed. Using a step drill, and based on preoperative templating, the femoral canal was entered. This was done with a step drill without any difficulty. The intramedullary distal femoral cut guide was inserted, set to a 5 degree valgus cut and 9mm cut thickness. The distal femoral cut guide was then held in position and pinned. With the soft tissues protected, the distal cut was performed. This was passed over a few times to ensure a planar cut. I then turned attention to the tibia. The extramedullary guide was placed onto the leg. The distal aspect was slid medial to adjust for position of center of ankle and stay in line with shaft of the tibia. Approximately 3-5 degrees of posterior slope was kept in the proximal cutting guide. The center of the guide was aligned with the PCL. The stylus was used to assess cut thickness. The medial side, most involved side, was set for a 6mm cut. This was then held in position and pinned into place with 2 additional pins and a cross pin for stability. The medial and lateral collateral ligaments were protected and the cut was performed. With this completed, it was assessed and noted to be of appropriate dimensions. The guide was removed. A spacer block was inserted and the knee was brought into extension. The 6mm spacer block provided full extension, without hyperextension and with stability of both the medial and lateral collateral ligaments was assessed. The pins from the femur and the tibia were then removed. The distal femur was then sized. The anterior stylus was placed onto the lateral ridge of the anterior femur. This indicated a size 7 femur. The external rotation of the guide was adjusted to 3 degrees to match the epicondylar axis, perpendicular to Hari?s line. The 4-in-1 cutting guide was the placed. The posterior medial femur cut was evaluated and appeared of good thickness. The spacer block was inserted underneath the cutting guide and stability was confirmed in 90 degrees of flexion. An geovany wing was used to confirm appropriate position of the anterior cut to avoid notching. This cutting guide was ensured to be flush on the cut surface and then pinned into place with headed pins. While protecting the soft tissues, quad tendon, and collateral ligaments, the anterior and posterior cuts were performed with a saw. The central two pins were removed and the posterior and anterior chamfers were cut next. The notch-cutting guide was placed. This was pinned to lateralize the femoral component as much as possible while keeping it flush on the cut surface. This was then pinned into position. A reciprocating saw was used to make the notch cut. A rasp smoothed the cut surfaces. The medial and lateral menisci were removed. A trial femoral component was then inserted, impacted down to the cut surfaces, and the lug holes were drilled. A provisional trial tibial component was placed and the knee was brought through range of motion. There was noted to be excellent extension and flexion. There was no significant instability. The patella was tracking without thumbs. A size 6mm polyethylene component provided the best range of motion and stability with less than 2mm gapping with medial and lateral stress and full extension without significant hyperextension. The tibial cut surface was fully exposed. The tibia was then sized as a 7. The tibia had been previously marked during trialing to correspond to the center of the tibial component to help with rotation. The trial was aligned to this judy, approximately rotated to the medial 1/3rd of the tibial tubercle. The trial was pinned into place. The tibia was prepared with a reamer and a keel punch and lug holes. The knee was then brought into extension and the patella was measured as 25mm. Using the patellar clamp and cut guide, this was resected to a flat surface with at least 13mm of thickness remaining. The size 35 patella fit the best. This was oriented and then clamped into position. The lugs were drilled. The trial components were removed. The final components were opened on the back table. The periosteal and capsular tissues, especially posteriorly, around the knee were then systematically injected with a periarticular cocktail consisting of 246mg of Ropivacaine, 0.5mg of Epinephrine, 0.08mg of Clonidine, and 30mg of Ketorolac, diluted to 100cc. On the back table, with the implants opened. The cement was mixed. One batch of high viscosity cement was prepared with vacuum assistance. After the cement was ready a small amount was placed on the cut surface of the patella and the patellar button was clamped into position and held. The cementless knee components were placed. Starting with the tibial component, the tibia was subluxed anteriorly and the lug holes of the component were lined up. The tibia was then impacted with an impactor and mallet until the tibial component was in contact with the tibia. The final polyethylene component was inserted. Then, the femoral component was inserted. The lug holes were aligned and the component was impacted into position. The knee was irrigated with Surgiphor Betadine solution. This was allowed to sit in the knee for 3 minutes and then it was irrigated out with saline. After the cement had finally cured, approximately 15min, the clamp was removed from the patella and the knee was taken through range of motion. The patella was tracking with a no-thumbs technique. The capsule was then reapproximated with a No. 1 Vicryl at multiple locations. The capsule was finally closed with a No. 2 Stratafix, barbed suture. The second dosing of 1g TXA was started. Deep tissues were then reapproximated with 0 Vicryl and 2-0 Vicryl. The skin was closed with a running 3-0 Monocryl in a subcuticular fashion. This was reinforced with skin glue. A Mepilex silver dressing was applied along with a [id number] ALPHONSE wrap. A CryoCuff was applied. Judy was transferred to the hospital bed without difficulty an suffering no apparent complication. Judy has a good prognosis. Physical therapy will start today and without restrictions, weight-bearing as tolerated. Aspirin 81mg BID will be used for DVT prophylaxis. Date of Procedure: 12/08/24
--- NOTE | 2024-12-08 14:07 | W.ANESPOSTOP ---
Postoperative Evaluation Date, Time and Location Date Performed: 12/08/24 Time Performed: 14:07 Patient Location: Day Surgery Unit Vital Signs Most Recent Imported Vital Signs: Most Recent Vital Signs Temp Pulse Resp BP Pulse Ox 36.2 C L 59 L 11 L 130/83 98 12/08/24 13:43 12/08/24 13:46 12/08/24 13:46 12/08/24 13:46 12/08/24 13:46 Pain Score Most Recent Pain Score: Most Recent Pain Score Pain Level 0 12/08/24 13:48 Assessment Mental Status: Awake (Alert & Oriented to Patient Baseline) Airway and Respiratory Function: Patent airway with normal (patient baseline) respiratory exam Cardiovascular Function: Hemodynamically Stable Hydration Status: Adequately Hydrated Nausea & Vomiting: No Nausea or Vomiting Pain: Pt. Denies Any Pain Peripheral Nerve Block: Patient did not receive a nerve block
[2024-12-08] MEDS: Tranexamic Acid 650 MG TAB 1300 MG PO (14:33)
== END 2024-12-08 15:48 | disposition home or self-care (01) ==
LOC: SUR 09:22
PROVIDERS: PCP Nurse Practitioner Family; Visit Provider Student in an Organized Health Care Education/Training Program
PROC: (CPT 27447; principal; 2024-12-08 12:30)
DX: M17.11 Unilateral primary osteoarthritis, right knee (principal); G89.18 Other acute postprocedural pain
CPT/HCPCS: 27447; 64447; 97110; 97161; C1776; J0665; J0666; J0690; J2003; J2250; J2371; J2401; J2405; J2704

== ENCOUNTER 2024-12-23 09:59 | Outpatient (CLI) | payer MEDICARE, SELFPAY ==
--- NOTE | 2024-12-23 09:45 | DI.RAD_ITS ---
Exam(s) XR KNEE RT 1V XR STANDING ALIGNMENT EXAM: XR STANDING ALIGNMENT and XR knee RT 1 V CLINICAL HISTORY: 1ST POST OP S/P R TKA. TECHNIQUE: 2D digital imaging was performed. Four images were obtained. COMPARISON: CR XR KNEE RT 1V from 09/09/2024 CR XR KNEE LT 1V from 09/09/2024 CR XR STANDING ALIGNMENT from 09/09/2024 FINDINGS: BONES: The hips are well maintained. Since the prior examination the patient has undergone a right total knee arthroplasty. The orthopedic hardware is in good position. There are no suspicious lucencies around the orthopedic hardware. In the left knee, there is marked narrowing of the medial femoral tibial joint. Osteophytes are seen both medially and laterally. The ankles are well maintained.There is no significant leg length discrepancy. SOFT TISSUE: Atherosclerotic calcification is present. IMPRESSION: 1. Interval placement of a right total knee arthroplasty. 2. Osteoarthritis of the left knee. DATA REPOSITORY: RADIATION DOSE DELIVERED:
== END 2024-12-23 10:00 | disposition home or self-care (01) ==
LOC: DIORS 09:59
PROVIDERS: PCP Nurse Practitioner Family; Referring Provider Nurse Practitioner Family; Visit Provider Student in an Organized Health Care Education/Training Program
DX: Z47.1 Aftercare following joint replacement surgery (principal); Z96.651 Presence of right artificial knee joint; M17.12 Unilateral primary osteoarthritis, left knee
CPT/HCPCS: 99024; 73560; 77073

== ENCOUNTER → 2025-01-21 09:04 | Outpatient (BNVA) | payer MEDICARE, SELFPAY | PROVIDERS: PCP Nurse Practitioner Family; Referring Provider Nurse Practitioner Family; Visit Provider Physician Assistant | DX: T84.82XA Fibrosis due to internal orthopedic prosthetic devices, implants and grafts, initial encounter (principal) | CPT/HCPCS: 99213 ==

== ENCOUNTER 2025-03-02 04:07 | Outpatient (CLI) | payer MEDICARE, SELFPAY ==
[2025-03-02 14:29] LABS: Anion Gap 12.0 mmol/L (3-11); BUN 19 mg/dL (7-18); CO2 26.0 mmol/L (21.0-32.0); Calcium 9.4 mg/dL (8.5-10.1); Chloride 104 mmol/L (98-107); Estimated GFR 83.01 (mL/min/1.73m2); Glucose 147 mg/dL (74-106); Potassium 4.5 mmol/L (3.5-5.1); Sodium 142 mmol/L (136-145)
[2025-03-02 14:29] LABS: Calculated LDL 79 mg/dL (<100); Cholesterol 150 mg/dL (<200); HDL Cholesterol 39 mg/dL (>or=40); Triglyceride 162 mg/dL (<150)
[2025-03-02 14:39] LABS: HCT 53.3 % (40.0-50.0); HGB 17.7 g/dL (13.5-17.5); MCH 28.7 pg (27.0-33.0); MCHC 33.2 % (32.0-36.0); MCV 87 fL (80-95); MPV 12.2 fL (8.0-11.0); Platelet Count 164 10^3/uL (130-400); RBC 6.16 10^6/uL (4.36-5.78); RDW 13.2 % (11.8-14.1); RDW-SD 40.9 fL; WBC 7.13 10^3/uL (4.4-10.8)
[2025-03-02 22:22] LABS: PSA, Screening 1.2 ng/mL (<=4.5)
== END 2025-03-02 04:08 | disposition home or self-care (01) ==
LOC: LOS 04:07
PROVIDERS: PCP Nurse Practitioner Family; Visit Provider Student in an Organized Health Care Education/Training Program
DX: Z12.5 Encounter for screening for malignant neoplasm of prostate (principal); Z13.6 Encounter for screening for cardiovascular disorders; E11.9 Type 2 diabetes mellitus without complications; M17.12 Unilateral primary osteoarthritis, left knee; Z01.818 Encounter for other preprocedural examination
CPT/HCPCS: 36415; 80048; 80061; 84153; 85027; 82985

== ENCOUNTER → 2025-03-03 09:09 | Outpatient (BNVA) | payer MEDICARE, SELFPAY | PROVIDERS: PCP Nurse Practitioner Family; Referring Provider Nurse Practitioner Family; Visit Provider Physician Assistant | DX: Z47.1 Aftercare following joint replacement surgery (principal); Z96.651 Presence of right artificial knee joint | CPT/HCPCS: 99024 ==